=== PATIENT | female | born 1990 | race Caucasian/White ===

== ENCOUNTER 2017-06-16 10:09 | Day surgery (SDC) | payer BC ==
[~2017-06-16 10:09] MED LIST: Lactated Ringers 1,000 ML IV SCH; Lidocaine 1%/Sod Bicarbonate in NS 8.4% 1 ML Syringe PRN; Sodium Chloride 0.9% 10 ML Syringe FLUSH PRN
--- NOTE | 2017-06-16 10:56 | PCM.PREANE ---
Preanesthetic Assessment - Anesthesia/Transfusion/Family Hx Anesthesia History: Prior Anesthesia Without Reaction Family History of Anesthesia Reaction: No Transfusion History: No Prior Transfusion(s) Intubation History: Unknown - Review of Systems General: No Symptoms Pulmonary: No Symptoms Cardiovascular: No Symptoms Gastrointestinal: No Symptoms Neurological: No Symptoms Other: Reports: None - Physical Assessment NPO Status Date: 06/15/17 NPO Status Time: 18:00 Pulse: 79 O2 Sat by Pulse Oximetry: 96 Respiratory Rate: 16 Blood Pressure: 124/63 Temperature: 37.7 C Height: 1.73 m Weight: 80.739 kg ASA Class: 1 Mental Status: Alert & Oriented x3 Airway Class: Mallampati = 2 Dentition: Reports: Normal Dentition, Caries Thyro-Mental Finger Breadths: 3 Mouth Opening Finger Breadths: 3 ROM/Head Extension: Full Lungs: Clear to Auscultation, Normal Respiratory Effort Cardiovascular: Regular Rate, Regular Rhythm, No Murmurs - Lab Values: Laboratory Last Values WBC 10.45 K/mm3 (3.98-10.04) H 05/18/17 16:01 RBC 4.71 M/mm3 (3.98-5.22) 05/18/17 16:01 Hgb 13.0 gm/L (11.2-15.7) 05/18/17 16:01 Hct 40.4 % (34.1-44.9) 05/18/17 16:01 MCV 85.8 fl (79.4-94.8) 05/18/17 16:01 MCH 27.6 pg (25.6-32.2) 05/18/17 16:01 MCHC 32.2 g/dl (32.2-35.5) 05/18/17 16:01 RDW Std Deviation 41.7 fL (36.4-46.3) 05/18/17 16:01 Plt Count 293 K/mm3 (182-369) 05/18/17 16:01 MPV 10.9 fl (9.4-12.3) 05/18/17 16:01 Neut % (Auto) 66.4 % (34.0-71.1) 05/18/17 16:01 Lymph % (Auto) 24.0 % (19.3-51.7) 05/18/17 16:01 [place] % (Auto) 6.8 % (4.7-12.5) 05/18/17 16:01 Eos % (Auto) 2.2 (0.7-5.8) 05/18/17 16:01 Baso % (Auto) 0.4 % (0.1-1.2) 05/18/17 16:01 Neut # (Auto) 6.94 K/mm3 (1.56-6.13) H 05/18/17 16:01 Lymph # (Auto) 2.51 K/mm3 (1.18-3.74) 05/18/17 16:01 [place] # (Auto) 0.71 K/mm3 (0.24-0.36) H 05/18/17 16:01 Eos # (Auto) 0.23 K/mm3 (0.04-0.36) 05/18/17 16:01 Baso # (Auto) 0.04 K/mm3 (0.01-0.08) 05/18/17 16:01 Sodium 141 mEq/L (136-145) 05/18/17 16:01 Potassium 4.0 mEq/L (3.5-5.1) 05/18/17 16:01 Chloride 105 mEq/L (98-107) 05/18/17 16:01 Carbon Dioxide 28 mEq/L (21-32) 05/18/17 16:01 Anion Gap 12.0 (5-15) 05/18/17 16:01 BUN 12 mg/dL (7-18) 05/18/17 16:01 Creatinine 1.0 mg/dL (0.55-1.02) 05/18/17 16:01 Est Cr Clr Drug Dosing 86.75 mL/min 05/18/17 16:01 Estimated GFR (MDRD) > 60 mL/min (>60) 05/18/17 16:01 BUN/Creatinine Ratio 12.0 (14-18) L 05/18/17 16:01 Glucose 85 mg/dL (74-106) 05/18/17 16:01 Calcium 9.3 mg/dL (8.5-10.1) 05/18/17 16:01 Urine HCG, Qual Negative (NEGATIVE) 06/16/17 10:27 MRSA (PCR) Negative 05/18/17 16:01 HCG negative Above labs reviewed and noted and acceptable to proceed with scheduled procedure. - Allergies Allergies/Adverse Reactions: Allergies Allergy/AdvReac Type Severity Reaction Status Date / Time No Known Allergies Allergy Verified 06/15/17 13:37 - Anesthesia Plan Pre-Op Medication Ordered: None - Acknowledgements Anesthesia Type Planned: General Anesthesia Pt an Appropriate Candidate for the Planned Anesthesia: Yes Alternatives and Risks of Anesthesia Discussed w Pt/Guardian: Yes Pt/Guardian Understands and Agrees with Anesthesia Plan: Yes PreAnesthesia Questionnaire - Past Health History Medical/Surgical History: Denies Medical/Surgical History - Past Surgical History HEENT Surgical History: Reports: Other (See Below) Other HEENT Surgeries/Procedures: wisdom teeth Female Surgical History: Reports: Dilitation & Evacuation Other Musculoskeletal Surgeries/Procedures:: left tibia medullary adeel surgery - SUBSTANCE USE Smoking Status *Q: Never Smoker Recreational Drug Use History: No - HOME MEDS Home Medications: Home Meds Hydrocodone/Acetaminophen [Hydrocodon-Acetaminophen 5-325] 1 - 2 each PO Q6HR PRN #20 tablet 11/19/15 [Rx] - CURRENT (IN HOUSE) MEDS Current Meds: Current Medications Lactated Ringer's (Ringers, Lactated) 1,000 mls @ 125 mls/hr IV ASDIRECTED OSVALDO Stop: 06/16/17 23:00 Lidocaine/Sodium Bicarbonate (Buffered Lidocaine 1% In Ns 8.4%) 0.25 ml .XX ONETIME PRN PRN Reason: Prior to IV Start Stop: 06/16/17 18:00 Sodium Chloride (Saline Flush) 10 ml FLUSH ASDIRECTED PRN PRN Reason: Keep Vein Open Stop: 06/16/17 18:00
[2017-06-16] MEDS ORDERED: Bupivacaine 0.25% 30 ML SDV ONE (11:02)
[2017-06-16] MEDS ORDERED: EPINEPHrine 1 MG/ML 30 ML MDV ONE (11:04)
[2017-06-16] MEDS ORDERED: Ondansetron 4 MG/2 ML SDV ONE ×2 (11:18→15:02)
[2017-06-16] MEDS ORDERED: Rocuronium 50 MG/5 ML Vial ONE (11:18)
[2017-06-16] MEDS ORDERED: Propofol 200 MG/20 ML SDV ONE (11:18)
[2017-06-16] MEDS ORDERED: Lidocaine 1% 4 ML ONE (11:19)
[2017-06-16] MEDS ORDERED: fentaNYL 250 MCG/5 ML SDV ONE ×2 (11:19→13:07)
[2017-06-16] MEDS ORDERED: Midazolam 1 MG/ML 2 ML SDV ONE (11:19)
[2017-06-16] MEDS ORDERED: ceFAZolin 1 GM Vial ONE (11:19)
[2017-06-16] MEDS ORDERED: HYDROmorphone 1 MG/ML Syringe ONE (12:35)
[2017-06-16] MEDS ORDERED: Lactated Ringers 1,000 ML ONE (12:48)
[2017-06-16] MEDS ORDERED: fentaNYL 100 MCG/2 ML SDV IVPUSH PRN (13:40)
[2017-06-16] MEDS ORDERED: HYDROmorphone 0.5 MG/0.5 ML Syringe IVPUSH PRN (13:40)
--- NOTE | 2017-06-16 13:40 | PCM.POSTAN ---
POST ANESTHESIA ASSESSMENT - MENTAL STATUS Mental Status: Alert, Oriented - VITAL SIGNS Pulse Rate: 83 SaO2: 97 Resp Rate: 11 Blood Pressure: 104/55 Temperature: 36.6 C - RESPIRATORY Respiratory Status: Respiratory Rate WNL, Airway Patent, O2 Saturation Stable, Supplemental Oxygen - CARDIOVASCULAR CV Status: Pulse Rate WNL, Blood Pressure Stable - GASTROINTESTINAL GI Status: No Symptoms - PAIN Pain Score: 0 - POST OP HYDRATION Hydration Status: Adequate & Stable - OBSERVATIONS Free Text/Narrative:: no anesthesia complications noted
--- NOTE | 2017-06-16 13:43 | CR ---
Right knee: Multiple fluoroscopic spot views were obtained of the right knee. Study shows patellar surgery. Fluoroscopy time given as 72.0 seconds. Impression: 1. Findings as noted above. Diagnostic code #2
[2017-06-16] MEDS ORDERED: Ketorolac 30 MG/ML SDV IVPUSH PRN (15:00)
[2017-06-16] MEDS ORDERED: Ondansetron 4 MG/2 ML SDV IVPUSH PRN (15:07)
[2017-06-16] MEDS ORDERED: Metoclopramide 10 MG/2 ML SDV IVPUSH PRN (15:07)
[2017-06-16] MEDS ORDERED: Acetaminophen/HYDROcodone 325-5 MG Tab PO PRN (15:15)
[2017-06-16 17:37] VITALS: BP 119/74
--- NOTE | 2017-06-22 13:31 | PCM.OPNOTE ---
- General Post-Op/Procedure Note Date of Surgery/Procedure: 06/16/17 Operative Procedure(s): right knee video arthroscopy with medial patellofemoral ligament reconstruction with hamstring allograft Pre Op Diagnosis: Patellofemoral malalignment with patellar chondromalacia Post-Op Diagnosis: Same Anesthesia Technique: General LMA, Local Primary Surgeon: Isaac Merrill Anesthesia Provider: Brandy Lorenzo Clinical Faculty: Paris Muniz in mLs: 5 Complications: None Condition: Good
--- NOTE | 2017-06-22 15:59 | OR ---
DATE OF OPERATION: 06/16/2017 SURGEON: Isaac Merrill MD OPERATION PERFORMED: Operative Procedure: Right knee video arthroscopy with medial patellofemoral ligament reconstruction with hamstring allograft. PREOPERATIVE DIAGNOSIS: Patellofemoral malalignment with patellar chondromalacia. POSTOPERATIVE DIAGNOSIS: Patellofemoral malalignment with patellar chondromalacia. ANESTHESIA: Technique: General LMA with local. ANESTHESIA PROVIDER: Brandy Lorenzo CRNA NEWS ASSISTANT: Paris Muniz PA-C ESTIMATED BLOOD LOSS: 5 mL. COMPLICATIONS: None. CONDITION: Stable. DESCRIPTION OF PROCEDURE: The patient was identified in the preoperative holding area. Proper site was marked and identified by the surgeon. The patient was taken back to the operating theater where after adequate anesthesia, the patient had a nonsterile tourniquet applied. The right lower extremity was then sterilely prepped and draped in the usual sterile fashion. OR time-out was performed. The patient received 2 g of IV Ancef. The patient was on a radiolucent table supine. At this time, right lower extremity was exsanguinated. Tourniquet was insufflated to 250 mmHg. At this time, standard anterior lower lateral portal incision was made with the patient's knee in flexion. Scope trocar was introduced. On examination of the patellofemoral joint, patient showed to have grade 2 chondromalacia of both the patella and grade 1 of the trochlea. The patient was noted to have significant lateral subluxation of the patellofemoral joint and the trochlea. Attention was turned to the medial lateral compartments. There were no loose foreign bodies. Attention was turned to the medial compartment. There was no medial meniscus tear or no chondromalacia of the medial compartment. ACL was found to be intact in the notch. Lateral compartment showed no signs of chondromalacia or meniscal tear. At this time, a posterolateral portal was created and the scope trocar was introduced. At this time, the patient's knee was brought through range of motion. It was found to show significant compression of the lateral patellar facet on the lateral femoral condyle with maltracking of the patella laterally. At this time, the scope was removed. Excess saline was drained. The remnants were turned on and incision was made over the medial 2/3 of the patella. This was brought down just short of the capsule, and the edge of the patella was identified. While this was happening, the allograft tendon had both ends whip stitched on the back table with Paris Muniz PA-C and prepared for the medial patellofemoral ligament reconstruction. At this time, guide pins were then placed 3 mm roughly from the superior medial edge of the patella and another one roughly 15 mm distally from this. Drill holes were then drilled for the 3.5 mm SwiveLock anchors. The plane between the 2nd and 3rd medial layers and the knee was then identified and was dissected. Guide pin was then placed at the proper positioning of the drill hole on the femur for the medial patellofemoral ligament reconstruction near the posterior edge of the posterior cortex and along just anterior to Blumensaat's line posteriorly. At this time, the guide pin was then placed all the way across through the lateral skin. Drill hole was then drilled through the medial side of the femur all the way through the canal. Stopping short making sure not to perforate the lateral cortex. Once the graft was prepared the 2 limbs of the graft were brought in and placed using SwiveLock anchors into the patella and then the graft was shuttled between the 2nd and 3rd layers of the medial layers of the knee. This was then brought through to the lateral side after the guide pin was placed for the 7 mm interference screw on the medial side of the femur. Tension was held on the patella and the suture once it was brought through the lateral skin in the proper positioning the scope was introduced and it was found to be tracking centrally. At this time, the 8 mm interference screw was placed in the femoral drill hole with the graft inside of it. At this time, the graft was brought through the lateral side, the interference screw was found to be in place. It was found to be in proper tracking, excess saline was drained. Adequate saline was irrigated through all wounds. 0 Vicryl was used for deep closure, 2-0 Vicryl was used subcutaneously, and lucian were used for the skin. The patient was placed in a sterile soft dressing and a hinged knee brace and was sent to the PACU in stable condition. MMODAL /[id number] JABIER
== END 2017-06-16 17:08 | disposition home or self-care (01) ==
LOC: JD.SDS 10:09
PROVIDERS: ATTEND Orthopaedic Surgery
DX: M22.2X1 Patellofemoral disorders, right knee (principal); M22.41 Chondromalacia patellae, right knee; Z98.890 Other specified postprocedural states
CPT/HCPCS: 27428; 36415; 76000; 80048; 81025; 85025; 87641; A9270; C1713; C1762; J0171; J0690; J1170; J2250; J2405; J3010; J3490; J7120; 01400; J2704

== ENCOUNTER 2020-05-05 05:52 | Inpatient (IN) | payer BC ==
[~2020-05-05 05:52] MED LIST changes: +Bupivacaine 0.25% 10 ML SDV ONE; -Lactated Ringers 1,000 ML IV SCH; -Lidocaine 1%/Sod Bicarbonate in NS 8.4% 1 ML Syringe PRN; -Sodium Chloride 0.9% 10 ML Syringe FLUSH PRN
[2020-05-05] MEDS ORDERED: Nalbuphine 10 MG/ML Syringe IVPUSH PRN (07:04)
[2020-05-05] MEDS ORDERED: Sodium Chloride 0.9% 10 ML Syringe FLUSH PRN (07:04)
[2020-05-05] MEDS ORDERED: Oxytocin/Lactated Ringers 10 UNIT/1,000 ML BAG IV SCH (07:15)
[2020-05-05] MEDS: Lactated Ringers 1,000 ML IV SCH ×3 (07:35→11:25)
[2020-05-05] MEDS ORDERED: fentaNYL 100 MCG/2 ML SDV EPIDUR PRN (08:03)
[2020-05-05] MEDS ORDERED: Bupivacaine/fentaNYL/NS 100 ML Bag EPIDUR PRN (08:03)
[2020-05-05] MEDS ORDERED: diphenhydrAMINE 50 MG/ML SDV IVPUSH PRN (08:03)
[2020-05-05] MEDS ORDERED: ePHEDrine 50 MG/ML SDV IVPUSH PRN (08:03)
--- NOTE | 2020-05-05 08:35 | PCM.PREANE ---
Preanesthetic Assessment - Procedure Proposed Procedure: catracho - Anesthesia/Transfusion/Family Hx Anesthesia History: Prior Anesthesia Without Reaction Family History of Anesthesia Reaction: No Transfusion History: No Prior Transfusion(s) Intubation History: Unknown - Review of Systems General: No Symptoms Pulmonary: No Symptoms Cardiovascular: No Symptoms Gastrointestinal: No Symptoms Neurological: No Symptoms Other: Reports: None - Physical Assessment Vital Signs: Last Vital Signs Temp 97.5 F 05/05/20 06:00 Pulse 92 05/05/20 06:00 Resp 15 05/05/20 06:00 BP 125/83 05/05/20 06:00 Pulse Ox 99 05/05/20 06:00 Height: 5 ft 8 in Weight: 105.687 kg ASA Class: 2 Mental Status: Alert & Oriented x3 Airway Class: Mallampati = 1 Dentition: Reports: Normal Dentition Thyro-Mental Finger Breadths: 3 Mouth Opening Finger Breadths: 3 ROM/Head Extension: Full Lungs: Clear to Auscultation, Normal Respiratory Effort Cardiovascular: Regular Rate, Regular Rhythm - Lab Values: Laboratory Last Values WBC 12.70 K/mm3 (3.98-10.04) H 05/05/20 07:20 RBC 4.64 M/mm3 (3.98-5.22) 05/05/20 07:20 Hgb 12.7 gm/dl (11.2-15.7) 05/05/20 07:20 Hct 38.4 % (34.1-44.9) 05/05/20 07:20 MCV 82.8 fl (79.4-94.8) 05/05/20 07:20 MCH 27.4 pg (25.6-32.2) 05/05/20 07:20 MCHC 33.1 g/dl (32.2-35.5) 05/05/20 07:20 RDW Std Deviation 48.0 fL (36.4-46.3) H 05/05/20 07:20 Plt Count 231 K/mm3 (182-369) 05/05/20 07:20 MPV 10.8 fl (9.4-12.3) 05/05/20 07:20 Neut % (Auto) 75.0 % (34.0-71.1) H 05/05/20 07:20 Lymph % (Auto) 17.2 % (19.3-51.7) L 05/05/20 07:20 [place] % (Auto) 6.4 % (4.7-12.5) 05/05/20 07:20 Eos % (Auto) 1.2 (0.7-5.8) 05/05/20 07:20 Baso % (Auto) 0.2 % (0.1-1.2) 05/05/20 07:20 Neut # (Auto) 9.53 K/mm3 (1.56-6.13) H 05/05/20 07:20 Lymph # (Auto) 2.19 K/mm3 (1.18-3.74) 05/05/20 07:20 [place] # (Auto) 0.81 K/mm3 (0.24-0.36) H 05/05/20 07:20 Eos # (Auto) 0.15 K/mm3 (0.04-0.36) 05/05/20 07:20 Baso # (Auto) 0.02 K/mm3 (0.01-0.08) 05/05/20 07:20 Membrane Rupture Positive H 05/05/20 06:27 - Allergies Allergies/Adverse Reactions: Allergies Allergy/AdvReac Type Severity Reaction Status Date / Time No Known Allergies Allergy Verified 05/05/20 07:42 - Blood Blood Available: No - Acknowledgements Anesthesia Type Planned: Epidural Pt an Appropriate Candidate for the Planned Anesthesia: Yes Alternatives and Risks of Anesthesia Discussed w Pt/Guardian: Yes Pt/Guardian Understands and Agrees with Anesthesia Plan: Yes PreAnesthesia Questionnaire - Past Health History Medical/Surgical History: Denies Medical/Surgical History Cardiovascular History: Reports: None Respiratory History: Reports: None Gastrointestinal History: Reports: None : 3 (38 5) Para: 0 Musculoskeletal History: Reports: None Psychiatric History: Reports: None Oncologic (Cancer) History: Reports: None - Past Surgical History HEENT Surgical History: Reports: Other (See Below) Other HEENT Surgeries/Procedures: wisdom teeth Female Surgical History: Reports: Dilitation & Evacuation Other Musculoskeletal Surgeries/Procedures:: left tibia medullary adeel surgery - SUBSTANCE USE Smoking Status *Q: Never Smoker Tobacco Use Within Last Twelve Months: No Second Hand Smoke Exposure: No Days Per Week of Alcohol Use: 0 Recreational Drug Use History: No - HOME MEDS Home Medications: Home Meds . [No Known Home Meds] 05/05/20 [History] - CURRENT (IN HOUSE) MEDS Current Meds: Current Medications Diphenhydramine HCl (Benadryl) 25 mg IVPUSH Q6H PRN PRN Reason: pruritis Ephedrine Sulfate (Ephedrine Sulfate) 5 mg IVPUSH ASDIRECTED PRN PRN Reason: Hypotension Fentanyl (Sublimaze) 100 mcg EPIDUR Q3H PRN PRN Reason: Pain Last Admin: 05/05/20 08:20 Dose: 100 mcg Documented by: Fentanyl/Bupivacaine HCl (Fentanyl/Bupivacaine/Ns 2 Mcg-0.125% 100 Ml) 100 ml EPIDUR ASDIRECTED PRN PRN Reason: Pain Last Admin: 05/05/20 08:20 Dose: 100 ml Documented by: Lactated Ringer's (Ringers, Lactated) 1,000 mls @ 100 mls/hr IV ASDIRECTED OSVALDO Last Admin: 05/05/20 08:21 Dose: 999 mls/hr Documented by: Oxytocin/Lactated Ringer's (Pitocin In Lr 10 Units/1,000 Ml) 10 unit in 1,000 mls @ 500 mls/hr IV .CONTINUOUS OSVALDO Nalbuphine HCl (Nubain) 10 mg IVPUSH Q2H PRN PRN Reason: Pain Sodium Chloride (Saline Flush) 10 ml FLUSH ASDIRECTED PRN PRN Reason: Keep Vein Open
--- NOTE | 2020-05-05 09:35 | PCM.LDHP ---
<Anna Butterfield - Last Filed: 05/05/20 09:49> L&D History of Present Illness - General Date of Service: 05/05/20 Admit Problem/Dx: Patient Status Order with Admit Dx/Problem 05/05/20 06:00 Patient Status [ADT] Routine 05/05/20 07:04 Patient Status [ADT] Routine Admission Diagnosis/Problem Admission Diagnosis/Problem Source of Information: Patient History Limitations: Reports: No Limitations - History of Present Illness Introduction:: Lulu Valdez is a 29-year-old white female at 38 weeks and 5 days gestational age, with an VASILE of 05/14/2020, who presents to labor and delivery with spontaneous rupture of membranes and meconium staining. Pain Score: 10 Present Illness Comments:: Lulu Valdez is a 29-year-old white female at 38 weeks and 5 days gestational age, with an VASILE of 05/14/2020, who presents to labor and delivery with spontaneous rupture of membranes and meconium staining. She tells me she woke up around 4:00 am this morning and noticed a "trickle" of clear liquid coming from her vagina, as well as moderate contractions. She presented to labor and delivery around 6:00 am this morning. When getting into bed on the unit, she had a "gush" of fluid consistent with meconium staining. OBGYN History: 29-year-old . VASILE 05/14/2020, LMP 08/08/2019 which was supported by ultrasound performed on 09/26/2019. Normal menarche at age 13, normal and regular cycles every 28 days. She was not on control at the time of conception. She has a history of HPV and colposcopy in June 2019. Past OBGYN History: 1. Induced in April 2015 at 8 weeks gestational age. 2. Induced in April 2016 at 6 weeks gestational age. Course: First visit on 10/29/2019 at 11 weeks 5 days gestational age. She was seen on a regular basis throughout . She weighed 163 lbs at the beginning of and 232 lbs on 04/29/2020, for a total weight gain during of 69 pounds. Vital signs remained stable throughout course and fundal height growths were appropriate. Second dose of HPV vaccine was given on 08/21/2019. Ultrasounds on 01/16/2020 and 02/27/2020 demonstrated normal anatomical growth. She plans to have an epidural. Group B strep negative. She is rubella immune. RPR nonreactive. Hepatitis B surface antigen and HIV were negative. Gonorrhea and chlamydia negative. Prequel results were negative in November 2019. Initial Labs on 10/29/2019: Blood Type: O positive Antibody Screen: Negative Hemoglobin: 12.8 g/dl Hematocrit:38.0% Platelets: 301 10*3/uL Second Trimester Labs on 02/19/2020: Hemoglobin: 11.7 g/dl Hematocrit: 36.7% Platelets: 258 10*3/uL - Related Data Allergies/Adverse Reactions: Allergies Allergy/AdvReac Type Severity Reaction Status Date / Time No Known Allergies Allergy Verified 05/05/20 07:42 Home Medications: Home Meds . [No Known Home Meds] 05/05/20 [History] Past Medical History - Past Health History Medical/Surgical History: Denies Medical/Surgical History Cardiovascular History: Reports: None Respiratory History: Reports: None Gastrointestinal History: Reports: None Musculoskeletal History: Reports: None Psychiatric History: Reports: None Oncologic (Cancer) History: Reports: None - Past Surgical History HEENT Surgical History: Reports: Other (See Below) Other HEENT Surgeries/Procedures: wisdom teeth Female Surgical History: Reports: Dilitation & Evacuation Other Musculoskeletal Surgeries/Procedures:: left tibia medullary adeel surgery Social & Family History - Family History Family Medical History: Noncontributory - Tobacco Use Smoking Status *Q: Never Smoker Second Hand Smoke Exposure: No - Alcohol Use Days Per Week of Alcohol Use: 0 - Recreational Drug Use Recreational Drug Use: No H&P Review of Systems - Review of Systems: Review Of Systems: See Below General: Reports: No Symptoms HEENT: Reports: No Symptoms Pulmonary: Reports: No Symptoms Cardiovascular: Reports: No Symptoms Gastrointestinal: Reports: No Symptoms Genitourinary: Reports: No Symptoms Musculoskeletal: Reports: No Symptoms Skin: Reports: No Symptoms Psychiatric: Reports: No Symptoms Neurological: Reports: No Symptoms Hematologic/Lymphatic: Reports: No Symptoms Immunologic: Reports: No Symptoms L&D Exam - Exam Exam: See Below - Vital Signs Vital Signs: Last Vital Signs Temp 97.5 F 05/05/20 06:00 Pulse 92 05/05/20 06:00 Resp 15 05/05/20 06:00 BP 125/83 05/05/20 06:00 Pulse Ox 99 05/05/20 06:00 Weight: 233 lb - OB Specific Movement: Active Heart Tones: Present - Pacheco Score Pacheco Score Cervix Position: Midposition Pacheco Score Consistency: Soft Pacheco Score Effacement: >80% Pacheco Score Dilation: 3-4 cm Pacheco Score Infant's Station: -2 Pacheco Score Total: 9 - Exam General: Alert, Oriented, Cooperative HEENT: Conjunctiva Clear, EOMI, Hearing Intact, Mucosa Moist & [place], Normal Nasal Septum, Posterior Pharynx Clear, Pupils Equal, Pupils Reactive Neck: Supple, Trachea Midline, Full Range of Motion Lungs: Clear to Auscultation, Normal Respiratory Effort Cardiovascular: Regular Rate, Regular Rhythm, Normal S1, Normal S2 GI/Abdominal Exam: Normal Bowel Sounds Rectal Exam: Deferred Genitourinary: Normal external exam Back Exam: Normal Inspection, Full Range of Motion, Other (No CVA tenderness) Extremities: Normal Inspection, Normal Range of Motion, Non-Tender, No Pedal Edema, Normal Capillary Refill Skin: Warm, Dry, Intact Neurological: Cranial Nerves Intact, Reflexes Equal Bilateral DTR: 2+: Bicep (L), Bicep (R), Patella (L), Patella (R), Achilles (L), Achilles (R) Psychiatric: Alert, Normal Affect, Normal Mood - Patient Data Lab Results Last 24 hrs: Laboratory Results - last 24 hr 05/05/20 05/05/20 Range/Units 06:27 07:20 WBC 12.70 H (3.98-10.04) K/mm3 RBC 4.64 (3.98-5.22) M/mm3 Hgb 12.7 (11.2-15.7) gm/dl Hct 38.4 (34.1-44.9) % MCV 82.8 (79.4-94.8) fl MCH 27.4 (25.6-32.2) pg MCHC 33.1 (32.2-35.5) g/dl RDW Std Deviation 48.0 H (36.4-46.3) fL Plt Count 231 (182-369) K/mm3 MPV 10.8 (9.4-12.3) fl Neut % (Auto) 75.0 H (34.0-71.1) % Lymph % (Auto) 17.2 L (19.3-51.7) % [place] % (Auto) 6.4 (4.7-12.5) % Eos % (Auto) 1.2 (0.7-5.8) Baso % (Auto) 0.2 (0.1-1.2) % Neut # (Auto) 9.53 H (1.56-6.13) K/mm3 Lymph # (Auto) 2.19 (1.18-3.74) K/mm3 [place] # (Auto) 0.81 H (0.24-0.36) K/mm3 Eos # (Auto) 0.15 (0.04-0.36) K/mm3 Baso # (Auto) 0.02 (0.01-0.08) K/mm3 Membrane Rupture Positive H Result Diagrams: 05/05/20 07:20 Problem List Initiated/Reviewed/Updated: Yes Orders Last 24hrs: Active Orders 24 hr Category Date Time Status Patient Status [ADT] Routine ADT 05/05/20 07:04 Active Activity as Tolerated [RC] PFP Care 05/05/20 07:04 Active Communication Order [RC] ASDIRECTED Care 05/05/20 07:04 Active Heart Tones [RC] ASDIRECTED Care 05/05/20 07:04 Active Non Stress Test [RC] PER UNIT ROUTINE Care 05/05/20 06:00 Active Notify Provider [RC] ASDIRECTED Care 05/05/20 08:03 Active Notify Provider [RC] PFP Care 05/05/20 07:04 Active Notify Provider [RC] PRN Care 05/05/20 07:04 Active Peripheral IV Care [RC] . DIRECTED Care 05/05/20 07:04 Active Vital Signs [RC] PER UNIT ROUTINE Care 05/05/20 06:00 Active Vital Signs [RC] PER UNIT ROUTINE Care 05/05/20 07:04 Active Regular Diet [DIET] Diet 05/05/20 Breakfast Active CORONAVIRUS COVID-19 ANGELO [MOLEC] Routine Lab 05/05/20 07:34 Ordered RAPID PLASMA REAGIN,RPR [CHEM] Routine Lab 05/05/20 07:20 Received TYPE AND SCREEN [BBK] Stat Lab 05/05/20 07:20 Received Bupivacaine/fentaNYL/NS [fentaNYL/Bupivacaine/NS 2 MCG- Med 05/05/20 08:03 Active 0.125% 100 ML] 100 ml EPIDUR ASDIRECTED PRN Lactated Ringers [Ringers, Lactated] 1,000 ml Med 05/05/20 07:15 Active IV ASDIRECTED Nalbuphine [Nubain] Med 05/05/20 07:04 Active 10 mg IVPUSH Q2H PRN Oxytocin/Lactated Ringers [Pitocin in LR 10 Units/1,000 Med 05/05/20 07:15 Active ML] 10 unit in 1,000 ml IV .CONTINUOUS Sodium Chloride 0.9% [Saline Flush] Med 05/05/20 07:04 Active 10 ml FLUSH ASDIRECTED PRN diphenhydrAMINE [Benadryl] Med 05/05/20 08:03 Active 25 mg IVPUSH Q6H PRN ePHEDrine [ePHEDrine sulfate] Med 05/05/20 08:03 Active 5 mg IVPUSH ASDIRECTED PRN fentaNYL [Sublimaze] Med 05/05/20 08:03 Active 100 mcg EPIDUR Q3H PRN Electronic Heart Tones Ext w TOCO [WOMSER] Oth 05/05/20 07:04 Ordered Routine Electronic Heart Tones Internal [WOMSER] Per Unit Oth 05/05/20 07:04 Ordered Routine Peripheral IV Insertion Adult [OM.PC] Routine Oth 05/05/20 07:04 Ordered Resuscitation Status Routine Resus Stat 05/05/20 06:00 Ordered Medication Orders Diphenhydramine HCl (Benadryl) 25 mg IVPUSH Q6H PRN PRN Reason: pruritis Ephedrine Sulfate (Ephedrine Sulfate) 5 mg IVPUSH ASDIRECTED PRN PRN Reason: Hypotension Fentanyl (Sublimaze) 100 mcg EPIDUR Q3H PRN PRN Reason: Pain Last Admin: 05/05/20 08:20 Dose: 100 mcg Documented by: DECKAMB Fentanyl/Bupivacaine HCl (Fentanyl/Bupivacaine/Ns 2 Mcg-0.125% 100 Ml) 100 ml EPIDUR ASDIRECTED PRN PRN Reason: Pain Last Admin: 05/05/20 08:20 Dose: 100 ml Documented by: DECKAMB Lactated Ringer's (Ringers, Lactated) 1,000 mls @ 100 mls/hr IV ASDIRECTED OSVALDO Last Admin: 05/05/20 08:21 Dose: 999 mls/hr Documented by: Infusion: 05/05/20 08:21 Dose: 999 mls/hr Documented by: Admin: 05/05/20 07:35 Dose: 999 mls/hr Documented by: ROXIE Oxytocin/Lactated Ringer's (Pitocin In Lr 10 Units/1,000 Ml) 10 unit in 1,000 mls @ 500 mls/hr IV .CONTINUOUS OSVALDO Nalbuphine HCl (Nubain) 10 mg IVPUSH Q2H PRN PRN Reason: Pain Sodium Chloride (Saline Flush) 10 ml FLUSH ASDIRECTED PRN PRN Reason: Keep Vein Open Assessment/Plan Comment:: Lulu Valdez is a 29-year-old white female at 38 weeks and 5 days gestational age, with an VASILE of 05/14/2020, who presents to labor and delivery with spontaneous rupture of membranes and meconium staining. At this time, she is 4-5 cm dilated and we will see how her labor progresses before discussing Pitocin. She plans to have an epidural. Routine labor care - IV Lactated Ringers Routine vital signs Activity as tolerated. <Miles Gamez - Last Filed: 05/05/20 09:59> L&D History of Present Illness - General Admit Problem/Dx: Patient Status Order with Admit Dx/Problem 05/05/20 06:00 Patient Status [ADT] Routine 05/05/20 07:04 Patient Status [ADT] Routine Admission Diagnosis/Problem Admission Diagnosis/Problem L&D Exam - Vital Signs Vital Signs: Last Vital Signs Temp 97.5 F 05/05/20 06:00 Pulse 92 05/05/20 06:00 Resp 15 05/05/20 06:00 BP 125/83 05/05/20 06:00 Pulse Ox 99 05/05/20 06:00 - Patient Data Lab Results Last 24 hrs: Laboratory Results - last 24 hr 05/05/20 05/05/20 Range/Units 06:27 07:20 WBC 12.70 H (3.98-10.04) K/mm3 RBC 4.64 (3.98-5.22) M/mm3 Hgb 12.7 (11.2-15.7) gm/dl Hct 38.4 (34.1-44.9) % MCV 82.8 (79.4-94.8) fl MCH 27.4 (25.6-32.2) pg MCHC 33.1 (32.2-35.5) g/dl RDW Std Deviation 48.0 H (36.4-46.3) fL Plt Count 231 (182-369) K/mm3 MPV 10.8 (9.4-12.3) fl Neut % (Auto) 75.0 H (34.0-71.1) % Lymph % (Auto) 17.2 L (19.3-51.7) % [place] % (Auto) 6.4 (4.7-12.5) % Eos % (Auto) 1.2 (0.7-5.8) Baso % (Auto) 0.2 (0.1-1.2) % Neut # (Auto) 9.53 H (1.56-6.13) K/mm3 Lymph # (Auto) 2.19 (1.18-3.74) K/mm3 [place] # (Auto) 0.81 H (0.24-0.36) K/mm3 Eos # (Auto) 0.15 (0.04-0.36) K/mm3 Baso # (Auto) 0.02 (0.01-0.08) K/mm3 Membrane Rupture Positive H Result Diagrams: 05/05/20 07:20 - Problem List (1) 38 weeks gestation of SNOMED Code(s): 17267139 ICD Code: Z3A.38 - 38 WEEKS GESTATION OF Status: Acute Current Visit: Yes (2) Spontaneous rupture of amniotic membranes SNOMED Code(s): 947025716 ICD Code: [id number] - Status: Acute Current Visit: Yes (3) Meconium in amniotic fluid affecting management of mother in third trimester SNOMED Code(s): 17831245, 76673782 ICD Code: O36.8930 - MATERNAL CARE FOR OTH PROBLEMS, THIRD TRIMESTER, UNSP Status: Acute Current Visit: Yes Problem List Initiated/Reviewed/Updated: No Orders Last 24hrs: Active Orders 24 hr Category Date Time Status Patient Status [ADT] Routine ADT 05/05/20 07:04 Active Activity as Tolerated [RC] PFP Care 05/05/20 07:04 Active Communication Order [RC] ASDIRECTED Care 05/05/20 07:04 Active Heart Tones [RC] ASDIRECTED Care 05/05/20 07:04 Active Non Stress Test [RC] PER UNIT ROUTINE Care 05/05/20 06:00 Active Notify Provider [RC] ASDIRECTED Care 05/05/20 08:03 Active Notify Provider [RC] PFP Care 05/05/20 07:04 Active Notify Provider [RC] PRN Care 05/05/20 07:04 Active Peripheral IV Care [RC] . DIRECTED Care 05/05/20 07:04 Active Vital Signs [RC] PER UNIT ROUTINE Care 05/05/20 06:00 Active Vital Signs [RC] PER UNIT ROUTINE Care 05/05/20 07:04 Active Regular Diet [DIET] Diet 05/05/20 Breakfast Active CORONAVIRUS COVID-19 ANGELO [MOLEC] Stat Lab 05/05/20 09:50 Ordered CORONAVIRUS COVID-19 RAPID [MOLEC] Routine Lab 05/05/20 09:35 Received RAPID PLASMA REAGIN,RPR [CHEM] Routine Lab 05/05/20 07:20 Received TYPE AND SCREEN [BBK] Stat Lab 05/05/20 07:20 Received Bupivacaine/fentaNYL/NS [fentaNYL/Bupivacaine/NS 2 MCG- Med 05/05/20 08:03 Active 0.125% 100 ML] 100 ml EPIDUR ASDIRECTED PRN Lactated Ringers [Ringers, Lactated] 1,000 ml Med 05/05/20 07:15 Active IV ASDIRECTED Nalbuphine [Nubain] Med 05/05/20 07:04 Active 10 mg IVPUSH Q2H PRN Oxytocin/Lactated Ringers [Pitocin in LR 10 Units/1,000 Med 05/05/20 07:15 Active ML] 10 unit in 1,000 ml IV .CONTINUOUS Sodium Chloride 0.9% [Saline Flush] Med 05/05/20 07:04 Active 10 ml FLUSH ASDIRECTED PRN diphenhydrAMINE [Benadryl] Med 05/05/20 08:03 Active 25 mg IVPUSH Q6H PRN ePHEDrine [ePHEDrine sulfate] Med 05/05/20 08:03 Active 5 mg IVPUSH ASDIRECTED PRN fentaNYL [Sublimaze] Med 05/05/20 08:03 Active 100 mcg EPIDUR Q3H PRN Electronic Heart Tones Ext w TOCO [WOMSER] Ot 05/05/20 07:04 Ordered Routine Electronic Heart Tones Internal [WOMSER] Per Unit Ot 05/05/20 07:04 Ordered Routine Peripheral IV Insertion Adult [OM.PC] Routine Ot 05/05/20 07:04 Ordered Resuscitation Status Routine Resus Stat 05/05/20 06:00 Ordered Medication Orders Diphenhydramine HCl (Benadryl) 25 mg IVPUSH Q6H PRN PRN Reason: pruritis Ephedrine Sulfate (Ephedrine Sulfate) 5 mg IVPUSH ASDIRECTED PRN PRN Reason: Hypotension Fentanyl (Sublimaze) 100 mcg EPIDUR Q3H PRN PRN Reason: Pain Last Admin: 05/05/20 08:20 Dose: 100 mcg Documented by: ROXIE Fentanyl/Bupivacaine HCl (Fentanyl/Bupivacaine/Ns 2 Mcg-0.125% 100 Ml) 100 ml EPIDUR ASDIRECTED PRN PRN Reason: Pain Last Admin: 05/05/20 08:20 Dose: 100 ml Documented by: ROXIE Lactated Ringer's (Ringers, Lactated) 1,000 mls @ 100 mls/hr IV ASDIRECTED OSVALDO Last Admin: 05/05/20 08:21 Dose: 999 mls/hr Documented by: Infusion: 05/05/20 08:21 Dose: 999 mls/hr Documented by: Admin: 05/05/20 07:35 Dose: 999 mls/hr Documented by: ROXIE Oxytocin/Lactated Ringer's (Pitocin In Lr 10 Units/1,000 Ml) 10 unit in 1,000 mls @ 500 mls/hr IV .CONTINUOUS OSVALDO Nalbuphine HCl (Nubain) 10 mg IVPUSH Q2H PRN PRN Reason: Pain Sodium Chloride (Saline Flush) 10 ml FLUSH ASDIRECTED PRN PRN Reason: Keep Vein Open Assessment/Plan Comment:: Patient seen by me and examined and patient discussed with student.
[2020-05-05] MEDS ORDERED: Metoclopramide 10 MG/2 ML SDV ONE (13:34)
[2020-05-05] MEDS ORDERED: Citric Acid/Sodium Citrate Solution 30 ML Cup ONE (13:34)
[2020-05-05] MEDS ORDERED: Metoclopramide 10 MG/2 ML SDV IVPUSH ONE (13:35)
[2020-05-05] MEDS ORDERED: Citric Acid/Sodium Citrate Solution 30 ML Cup PO ONE (13:35)
[2020-05-05] MEDS ORDERED: Bupivacaine 0.5% 30 ML SDV ONE (13:41)
[2020-05-05] MEDS ORDERED: Oxytocin 10 Units/1 ML SDV ONE (13:43)
[2020-05-05] MEDS ORDERED: Ketorolac 30 MG/ML SDV ONE (13:43)
[2020-05-05] MEDS ORDERED: Ondansetron 4 MG/2 ML SDV ONE (13:43)
[2020-05-05] MEDS ORDERED: ceFAZolin 1 GM Vial ONE (13:43)
[2020-05-05] MEDS ORDERED: Morphine PF 1 MG/ML Amp ONE (13:43)
[2020-05-05] MEDS ORDERED: Lactated Ringers 0 ML ONE (13:43)
[2020-05-05] MEDS ORDERED: Lidocaine 2% with EPINEPHrine 1:200,000 20 ML SDV ONE (13:45)
[2020-05-05] MEDS ORDERED: Sodium Bicarbonate 8.4% 50 MEQ/50 ML SDV ONE (13:45)
--- NOTE | 2020-05-05 14:07 | PCM.DEL ---
L & D Note - General Info Date of Service: 05/05/20 Mother's Due Date: 05/14/20 - Delivery Note Labor: Spontaneous Delivery Outcome: Livebirth (L liveborn 1347 hrs. on 05/05/2020 Apgars 8/9 born ALEXA vacuum assist x1 and green for less than 15 seconds. Weight 3010 g / 6 pounds 10.2 ounces, cord x1 reduced over the shoulder dark brown meconium staining.) Delivery Mode: Vacuum Extraction Presentation: Right Occiput Anterior (ALEXA) Nuchal Cord: Present (X1 tight dark brown meconium staining) Prep: Povidone-Iodine (Betadine Anesthesia Type: Epidural Amniotic Fluid Description: Meconium Stained Episiotomy Type: None Laceration: 1st Degree (9 and right-sided repaired with 3-0 Monocryl x1) Suture type: Other (Monocryl) Suture size: 3-0 Placenta: Intact, Spontaneous Cord: 3 Vessels Estimated Blood Loss: 250 Resuscitation Needed: No [place]: Suctioned, Bulb Syringe, Cathether, Stimulated, Warmed, [place] Used, Warmer Used Provider: Miles Gamez Score 1 min: 8 Score 5 min: 9 Vacuum Extractor Progress Note - Alternative Labor Strategies Considered Alternative Labor Strategies Considered:: Reports: Yes Strategies Considered:: Reports: Contraction Intensity Adequate, Position Changes Used to Facilitate Rotation & Descent, Empty Bladder, Rest Indications Considered:: Reports: Yes Indications:: Reports: Suspicion of Immediate or Potential Compromise Time Out:: Reports: Yes - Patient Prepared Patient Prepared:: Reports: Yes Informed Consent:: Reports: Verbal Risks: Reports: Yes Risks Include:: Reports: Laceration, Shoulder Dystocia, Maternal Injury, Other Anesthesia/Analgesia Adequate:: Reports: Yes - Probability of Success High Probability of Success:: Reports: Yes Weight Estimated:: Reports: AGA Patient Diabetic:: Reports: No Pelvis Adequate:: Reports: Yes Asynclitic:: Reports: No - Application Time Maximum Application Time & Number of Pop-Offs Predetermined:: Reports: Yes Type of Vacuum Used:: Reports: Cup: Mushroom type Vacuum Extraction: Successful - Exit Strategy Exit strategy available:: Reports: Yes and resuscitation teams readily available:: Reports: Yes - General Info Date of Service: 05/05/20 Functional Status: Reports: Pain Controlled - Review of Systems General: Reports: No Symptoms HEENT: Reports: No Symptoms Pulmonary: Reports: No Symptoms Cardiovascular: Reports: No Symptoms Gastrointestinal: Reports: No Symptoms Genitourinary: Reports: No Symptoms Musculoskeletal: Reports: No Symptoms Skin: Reports: No Symptoms Neurological: Reports: No Symptoms Psychiatric: Reports: No Symptoms - Patient Data Vitals - Most Recent: Last Vital Signs Temp 97.5 F 05/05/20 06:00 Pulse 92 05/05/20 06:00 Resp 15 05/05/20 06:00 BP 125/83 05/05/20 06:00 Pulse Ox 99 05/05/20 06:00 Weight - Most Recent: 233 lb Lab Results Last 24 Hours: Laboratory Results - last 24 hr 05/05/20 05/05/20 05/05/20 Range/Units 06:27 07: 07:20 WBC 12.70 H (3.98-10.04) K/mm3 RBC 4.64 (3.98-5.22) M/mm3 Hgb 12.7 (11.2-15.7) gm/dl Hct 38.4 (34.1-44.9) % MCV 82.8 (79.4-94.8) fl MCH 27.4 (25.6-32.2) pg MCHC 33.1 (32.2-35.5) g/dl RDW Std Deviation 48.0 H (36.4-46.3) fL Plt Count 231 (182-369) K/mm3 MPV 10.8 (9.4-12.3) fl Neut % (Auto) 75.0 H (34.0-71.1) % Lymph % (Auto) 17.2 L (19.3-51.7) % [place] % (Auto) 6.4 (4.7-12.5) % Eos % (Auto) 1.2 (0.7-5.8) Baso % (Auto) 0.2 (0.1-1.2) % Neut # (Auto) 9.53 H (1.56-6.13) K/mm3 Lymph # (Auto) 2.19 (1.18-3.74) K/mm3 [place] # (Auto) 0.81 H (0.24-0.36) K/mm3 Eos # (Auto) 0.15 (0.04-0.36) K/mm3 Baso # (Auto) 0.02 (0.01-0.08) K/mm3 Membrane Rupture Positive H COVID-19 (ANGELO) (NEGATIVE) Blood Type O POSITIVE Gel Antibody Screen Negative 05/05/20 Range/Units 09:35 WBC (3.98-10.04) K/mm3 RBC (3.98-5.22) M/mm3 Hgb (11.2-15.7) gm/dl Hct (34.1-44.9) % MCV (79.4-94.8) fl MCH (25.6-32.2) pg MCHC (32.2-35.5) g/dl RDW Std Deviation (36.4-46.3) fL Plt Count (182-369) K/mm3 MPV (9.4-12.3) fl Neut % (Auto) (34.0-71.1) % Lymph % (Auto) (19.3-51.7) % [place] % (Auto) (4.7-12.5) % Eos % (Auto) (0.7-5.8) Baso % (Auto) (0.1-1.2) % Neut # (Auto) (1.56-6.13) K/mm3 Lymph # (Auto) (1.18-3.74) K/mm3 [place] # (Auto) (0.24-0.36) K/mm3 Eos # (Auto) (0.04-0.36) K/mm3 Baso # (Auto) (0.01-0.08) K/mm3 Membrane Rupture COVID-19 (ANGELO) Negative (NEGATIVE) Blood Type Gel Antibody Screen Med Orders - Current: Current Medications Diphenhydramine HCl (Benadryl) 25 mg IVPUSH Q6H PRN PRN Reason: pruritis Ephedrine Sulfate (Ephedrine Sulfate) 5 mg IVPUSH ASDIRECTED PRN PRN Reason: Hypotension Fentanyl (Sublimaze) 100 mcg EPIDUR Q3H PRN PRN Reason: Pain Last Admin: 05/05/20 08:20 Dose: 100 mcg Documented by: Fentanyl/Bupivacaine HCl (Fentanyl/Bupivacaine/Ns 2 Mcg-0.125% 100 Ml) 100 ml EPIDUR ASDIRECTED PRN PRN Reason: Pain Last Admin: 05/05/20 08:20 Dose: 100 ml Documented by: Lactated Ringer's (Ringers, Lactated) 1,000 mls @ 100 mls/hr IV ASDIRECTED OSVALDO Last Admin: 05/05/20 11:25 Dose: 100 mls/hr Documented by: Oxytocin/Lactated Ringer's (Pitocin In Lr 10 Units/1,000 Ml) 10 unit in 1,000 mls @ 500 mls/hr IV .CONTINUOUS OSVALDO Nalbuphine HCl (Nubain) 10 mg IVPUSH Q2H PRN PRN Reason: Pain Sodium Chloride (Saline Flush) 10 ml FLUSH ASDIRECTED PRN PRN Reason: Keep Vein Open Discontinued Medications Bupivacaine HCl (Marcaine 0.5%) Confirm Administered Dose 30 ml .ROUTE .STK-MED ONE Stop: 05/05/20 13:42 Cefazolin Sodium (Ancef) Confirm Administered Dose 1 gm .ROUTE .STK-MED ONE Stop: 05/05/20 13:44 Citric Acid/Sodium Citrate (Bicitra Solution) Confirm Administered Dose 30 ml .ROUTE .STK-MED ONE Stop: 05/05/20 13:35 Citric Acid/Sodium Citrate (Bicitra Solution) 30 ml PO ONETIME ONE Stop: 05/05/20 13:36 Lactated Ringer's (Ringers, Lactated) Confirm Administered Dose 1,000 mls @ as directed .ROUTE .STK-MED ONE Stop: 05/05/20 13:44 Ketorolac Tromethamine (Toradol) Confirm Administered Dose 30 mg .ROUTE .STK-MED ONE Stop: 05/05/20 13:44 Lidocaine/Epinephrine (Xylocaine-Mpf 2%-Epi 1:200,000) Confirm Administered Dose 20 ml .ROUTE .STK-MED ONE Stop: 05/05/20 13:46 Metoclopramide HCl (Reglan) Confirm Administered Dose 10 mg .ROUTE .STK-MED ONE Stop: 05/05/20 13:35 Metoclopramide HCl (Reglan) 10 mg IVPUSH ONETIME ONE Stop: 05/05/20 13:36 Morphine Sulfate (Duramorph Pf) Confirm Administered Dose 1 mg .ROUTE .STK-MED ONE Stop: 05/05/20 13:44 Ondansetron HCl (Zofran) Confirm Administered Dose 4 mg .ROUTE .STK-MED ONE Stop: 05/05/20 13:44 Oxytocin (Pitocin) Confirm Administered Dose 10 unit .ROUTE .STK-MED ONE Stop: 05/05/20 13:44 Sodium Bicarbonate (Sodium Bicarbonate 8.4%) Confirm Administered Dose 50 meq .ROUTE .STK-MED ONE Stop: 05/05/20 13:46 - Exam General: Alert, Oriented Neck: Supple Lungs: Clear to Auscultation, Normal Respiratory Effort Cardiovascular: Regular Rate, Regular Rhythm Extremities: Normal Inspection, Non-Tender, No Pedal Edema, Normal Capillary Refill Skin: Warm, Dry, Intact Psy/Mental Status: Alert, Normal Affect, Normal Mood - Problem List & Annotations (1) 38 weeks gestation of SNOMED Code(s): 86095270 Code(s): Z3A.38 - 38 WEEKS GESTATION OF Status: Acute Current Visit: Yes (2) Spontaneous rupture of amniotic membranes SNOMED Code(s): 070254992 Code(s): UOP4496 - Status: Acute Current Visit: Yes (3) Meconium in amniotic fluid affecting management of mother in third trimester SNOMED Code(s): 09692210, 38907416 Code(s): O36.8930 - MATERNAL CARE FOR OTH PROBLEMS, THIRD TRIMESTER, UNSP Status: Acute Current Visit: Yes Qualifiers: Fetus number: single or unspecified fetus Qualified Code(s): O36.8930 - Maternal care for other specified problems, third trimester, not applicable or unspecified (4) Nuchal cord with compression, delivered, current hospitalization SNOMED Code(s): 350689049, 346867764 Code(s): O69.1XX0 - LABOR AND DELIVERY COMP BY CORD AROUND NECK, W COMPRSN, UNSP Status: Acute Current Visit: Yes - Problem List Review Problem List Initiated/Reviewed/Updated: No - My Orders Last 24 Hours: My Active Orders 05/05/20 Breakfast Regular Diet [DIET] 05/05/20 07:04 Patient Status [ADT] Routine Activity as Tolerated [RC] PFP Communication Order [RC] ASDIRECTED Heart Tones [RC] ASDIRECTED Notify Provider [RC] PFP Notify Provider [RC] PRN Peripheral IV Care [RC] . DIRECTED Vital Signs [RC] PER UNIT ROUTINE Nalbuphine [Nubain] 10 mg IVPUSH Q2H PRN Sodium Chloride 0.9% [Saline Flush] 10 ml FLUSH ASDIRECTED PRN Electronic Heart Tones Ext w TOCO [WOMSER] Routine Electronic Heart Tones Internal [WOMSER] Per Unit Routine Peripheral IV Insertion Adult [OM.PC] Routine 05/05/20 07:15 Lactated Ringers [Ringers, Lactated] 1,000 ml IV ASDIRECTED Oxytocin/Lactated Ringers [Pitocin in LR 10 Units/1,000 ML] 10 unit in 1,000 ml IV .CONTINUOUS 05/05/20 07:20 RAPID PLASMA REAGIN,RPR [CHEM] Routine - Plan Plan:: Patient seen by me and examined and patient discussed with student.
[2020-05-05] MEDS ORDERED: Oxytocin 10 Units/1 ML SDV IM ONE (14:13)
[2020-05-05] MEDS ORDERED: Witch Hazel Medicated Pads 40/Jar TOP PRN (14:39)
[2020-05-05] MEDS ORDERED: Benzocaine/Menthol 20%-0.5% Spray 56 GM Canister TOP PRN (14:39)
[2020-05-05] MEDS ORDERED: Docusate Sodium 100 MG Cap PO PRN (14:39)
[2020-05-05] MEDS ORDERED: Acetaminophen 325 MG Tab PO PRN (14:39)
[2020-05-06] MEDS: Ibuprofen 600 MG Tab PO PRN ×2 (03:38→18:27)
--- NOTE | 2020-05-06 07:31 | PCM.SN.2 ---
- Free Text/Narrative Note: Afebrile. Chest clear, no abnormal breath sounds, cor normal rhythm. Abdomen soft uterus at umbilicus. No heavy vaginal bleeding. No leg pain or cramping, or dedma. Probably home tomorroe.
--- NOTE | 2020-05-06 07:56 | PCM48HPAN ---
Post Anesthesia Note - EVALUATION WITHIN 48HRS OF ANESTHETIC Vital Signs in Normal Range: Yes Patient Participated in Evaluation: Yes Respiratory Function Stable: Yes Airway Patent: Yes Cardiovascular Function Stable: Yes Hydration Status Stable: Yes Pain Control Satisfactory: Yes Nausea and Vomiting Control Satisfactory: Yes Mental Status Recovered: Yes Vital Signs: Last Vital Signs Temp 36.6 C 05/06/20 03:34 Pulse 85 05/06/20 03:34 Resp 15 05/06/20 03:34 BP 125/77 05/06/20 03:34 Pulse Ox 99 05/06/20 03:34
[2020-05-07 06:19] VITALS: BP 126/79; PULSE 83
--- NOTE | 2020-05-07 09:14 | PCM.DCSUM1 ---
Discharge Summary - Hospital Course Free Text/Narrative:: [place] [facility] L/D Delivery Note Patient Name: STEPHANIE COSBY Date of : 89 Patient Status: Inpatient Attending Provider: Miles Gamez Date: 05/05/20 14:02 Initialization Date: 05/05/20 14:02 L & D Note - General Info Date of Service: 05/05/20 Mother's Due Date: 05/14/20 - Delivery Note Labor: Spontaneous Delivery Outcome: Livebirth (L liveborn 1347 hrs. on 05/05/2020 Apgars 8/9 born ALEXA vacuum assist x1 and green for less than 15 seconds. Weight 3010 g / 6 pounds 10.2 ounces, cord x1 reduced over the shoulder dark brown meconium staining.) Infant Delivery Mode: Vacuum Extraction Presentation: Right Occiput Anterior (ALEXA) Nuchal Cord: Present (X1 tight dark brown meconium staining) Prep: Povidone-Iodine (Betadine Anesthesia Type: Epidural Amniotic Fluid Description: Meconium Stained Episiotomy Type: None Laceration: 1st Degree (9 and right-sided repaired with 3-0 Monocryl x1) Suture type: Other (Monocryl) Suture size: 3-0 Placenta: Intact, Spontaneous Cord: 3 Vessels Estimated Blood Loss: 250 Resuscitation Needed: No [place]: Suctioned, Bulb Syringe, Cathether, Stimulated, Warmed, Hennessey Used, Warmer Used Provider: Miles Gamez Score 1 min: 8 Score 5 min: 9 Vacuum Extractor Progress Note - Alternative Labor Strategies Considered Alternative Labor Strategies Considered:: Reports: Yes Strategies Considered:: Reports: Contraction Intensity Adequate, Position Change s Used to Facilitate Rotation & Descent, Empty Bladder, Rest Indications Considered:: Reports: Yes Indications:: Reports: Suspicion of Immediate or Potential Compromise Time Out:: Reports: Yes - Patient Prepared Patient Prepared:: Reports: Yes Informed Consent:: Reports: Verbal Risks: Reports: Yes Risks Include:: Reports: Laceration, Shoulder Dystocia, Maternal Injury, Other Anesthesia/Analgesia Adequate:: Reports: Yes - Probability of Success High Probability of Success:: Reports: Yes Weight Estimated:: Reports: AGA Patient Diabetic:: Reports: No Pelvis Adequate:: Reports: Yes Asynclitic:: Reports: No - Application Time Maximum Application Time & Number of Pop-Offs Predetermined:: Reports: Yes Type of Vacuum Used:: Reports: Cup: Mushroom type Vacuum Extraction: Successful - Exit Strategy Exit strategy available:: Reports: Yes and resuscitation teams readily available:: Reports: Yes - General Info Date of Service: 05/05/20 Functional Status: Reports: Pain Controlled - Review of Systems General: Reports: No Symptoms HEENT: Reports: No Symptoms Pulmonary: Reports: No Symptoms Cardiovascular: Reports: No Symptoms Gastrointestinal: Reports: No Symptoms Genitourinary: Reports: No Symptoms Musculoskeletal: Reports: No Symptoms Skin: Reports: No Symptoms Neurological: Reports: No Symptoms Psychiatric: Reports: No Symptoms - Patient Data Vitals - Most Recent: Last Vital Signs Temp 97.5 F 05/05/20 06:00 Pulse 92 05/05/20 06:00 Resp 15 05/05/20 06:00 BP 125/83 05/05/20 06:00 Pulse Ox 99 05/05/20 06:00 Weight - Most Recent: 233 lb Lab Results Last 24 Hours: Laboratory Results - last 24 hr 05/05/20 05/05/20 05/05/20 Range/Units 06:27 07:20 07:20 WBC 12.70 H (3.98-10.04) K/mm3 RBC 4.64 (3.98-5.22) M/mm3 Hgb 12.7 (11.2-15.7) gm/dl Hct 38.4 (34.1-44.9) % MCV 82.8 (79.4-94.8) fl MCH 27.4 (25.6-32.2) pg MCHC 33.1 (32.2-35.5) g/dl RDW Std Deviation 48.0 H (36.4-46.3) fL Plt Count 231 (182-369) K/mm3 MPV 10.8 (9.4-12.3) fl Neut % (Auto) 75.0 H (34.0-71.1) % Lymph % (Auto) 17.2 L (19.3-51.7) % Monroe % (Auto) 6.4 (4.7-12.5) % Eos % (Auto) 1.2 (0.7-5.8) Baso % (Auto) 0.2 (0.1-1.2) % Neut # (Auto) 9.53 H (1.56-6.13) K/mm3 Lymph # (Auto) 2.19 (1.18-3.74) K/mm3 Monroe # (Auto) 0.81 H (0.24-0.36) K/mm3 Eos # (Auto) 0.15 (0.04-0.36) K/mm3 Baso # (Auto) 0.02 (0.01-0.08) K/mm3 Membrane Rupture Positive H COVID-19 (ANGELO) (NEGATIVE) Blood Type O POSITIVE Gel Antibody Screen Negative 05/05/20 Range/Units 09:35 WBC (3.98-10.04) K/mm3 RBC (3.98-5.22) M/mm3 Hgb (11.2-15.7) gm/dl Hct (34.1-44.9) % MCV (79.4-94.8) fl MCH (25.6-32.2) pg MCHC (32.2-35.5) g/dl RDW Std Deviation (36.4-46.3) fL Plt Count (182-369) K/mm3 MPV (9.4-12.3) fl Neut % (Auto) (34.0-71.1) % Lymph % (Auto) (19.3-51.7) % Monroe % (Auto) (4.7-12.5) % Eos % (Auto) (0.7-5.8) Baso % (Auto) (0.1-1.2) % Neut # (Auto) (1.56-6.13) K/mm3 Lymph # (Auto) (1.18-3.74) K/mm3 [place] # (Auto) (0.24-0.36) K/mm3 Eos # (Auto) (0.04-0.36) K/mm3 Baso # (Auto) (0.01-0.08) K/mm3 Membrane Rupture COVID-19 (ANGELO) Negative (NEGATIVE) Blood Type Gel Antibody Screen Med Orders - Current: Current Medications Diphenhydramine HCl (Benadryl) 25 mg IVPUSH Q6H PRN PRN Reason: pruritis Ephedrine Sulfate (Ephedrine Sulfate) 5 mg IVPUSH ASDIRECTED PRN PRN Reason: Hypotension Fentanyl (Sublimaze) 100 mcg EPIDUR Q3H PRN PRN Reason: Pain Last Admin: 05/05/20 08:20 Dose: 100 mcg Documented by: Fentanyl/Bupivacaine HCl (Fentanyl/Bupivacaine/Ns 2 Mcg-0.125% 100 Ml) 100 ml EPIDUR ASDIRECTED PRN PRN Reason: Pain Last Admin: 05/05/20 08:20 Dose: 100 ml Documented by: Lactated Ringer's (Ringers, Lactated) 1,000 mls @ 100 mls/hr IV ASDIRECTED OSVALDO Last Admin: 05/05/20 11:25 Dose: 100 mls/hr Documented by: Oxytocin/Lactated Ringer's (Pitocin In Lr 10 Units/1,000 Ml) 10 unit in 1,000 mls @ 500 mls/hr IV .CONTINUOUS OSVALDO Nalbuphine HCl (Nubain) 10 mg IVPUSH Q2H PRN PRN Reason: Pain Sodium Chloride (Saline Flush) 10 ml FLUSH ASDIRECTED PRN PRN Reason: Keep Vein Open Discontinued Medications Bupivacaine HCl (Marcaine 0.5%) Confirm Administered Dose 30 ml .ROUTE .STK-MED ONE Stop: 05/05/20 13:42 Cefazolin Sodium (Ancef) Confirm Administered Dose 1 gm .ROUTE .STK-MED ONE Stop: 05/05/20 13:44 Citric Acid/Sodium Citrate (Bicitra Solution) Confirm Administered Dose 30 ml .ROUTE .STK-MED ONE Stop: 05/05/20 13:35 Citric Acid/Sodium Citrate (Bicitra Solution) 30 ml PO ONETIME ONE Stop: 05/05/20 13:36 Lactated Ringer's (Ringers, Lactated) Confirm Administered Dose 1,000 mls @ as directed .ROUTE .STK-MED ONE Stop: 05/05/20 13:44 Ketorolac Tromethamine (Toradol) Confirm Administered Dose 30 mg .ROUTE .STK-MED ONE Stop: 05/05/20 13:44 Lidocaine/Epinephrine (Xylocaine-Mpf 2%-Epi 1:200,000) Confirm Administered Dose 20 ml .ROUTE .STK-MED ONE Stop: 05/05/20 13:46 Metoclopramide HCl (Reglan) Confirm Administered Dose 10 mg .ROUTE .STK-MED ONE Stop: 05/05/20 13:35 Metoclopramide HCl (Reglan) 10 mg IVPUSH ONETIME ONE Stop: 05/05/20 13:36 Morphine Sulfate (Duramorph Pf) Confirm Administered Dose 1 mg .ROUTE .STK-MED ONE Stop: 05/05/20 13:44 Ondansetron HCl (Zofran) Confirm Administered Dose 4 mg .ROUTE .STK-MED ONE Stop: 05/05/20 13:44 Oxytocin (Pitocin) Confirm Administered Dose 10 unit .ROUTE .STK-MED ONE Stop: 05/05/20 13:44 Sodium Bicarbonate (Sodium Bicarbonate 8.4%) Confirm Administered Dose 50 meq .ROUTE .STK-MED ONE Stop: 05/05/20 13:46 - Exam General: Alert, Oriented Neck: Supple Lungs: Clear to Auscultation, Normal Respiratory Effort Cardiovascular: Regular Rate, Regular Rhythm Extremities: Normal Inspection, Non-Tender, No Pedal Edema, Normal Capillary Refill Skin: Warm, Dry, Intact Psy/Mental Status: Alert, Normal Affect, Normal Mood - Problem List & Annotations (1) 38 weeks gestation of SNOMED Code(s): 80313313 Code(s): Z3A.38 - 38 WEEKS GESTATION OF Status: Acute Current Visit: Yes (2) Spontaneous rupture of amniotic membranes SNOMED Code(s): 853587717 Code(s): HYE5371 - Status: Acute Current Visit: Yes (3) Meconium in amniotic fluid affecting management of mother in third trimester SNOMED Code(s): 12331164, 93510472 Code(s): O36.8930 - MATERNAL CARE FOR OTH PROBLEMS, THIRD TRIMESTER, UNSP Status: Acute Current Visit: Yes Qualifiers: Fetus number: single or unspecified fetus Qualified Code(s): O36.8930 - Maternal care for other specified problems, third trimester, not applicable or unspecified (4) Nuchal cord with compression, delivered, current hospitalization SNOMED Code(s): 882111886, 349272155 Code(s): O69.1XX0 - LABOR AND DELIVERY COMP BY CORD AROUND NECK, W COMPRSN, UNSP Status: Acute Current Visit: Yes - Problem List Review Problem List Initiated/Reviewed/Updated: No - My Orders Last 24 Hours: My Active Orders 05/05/20 Breakfast Regular Diet [DIET] 05/05/20 07:04 Patient Status [ADT] Routine Activity as Tolerated [RC] PFP Communication Order [RC] ASDIRECTED Heart Tones [RC] ASDIRECTED Notify Provider [RC] PFP Notify Provider [RC] PRN Peripheral IV Care [RC] . DIRECTED Vital Signs [RC] PER UNIT ROUTINE Nalbuphine [Nubain] 10 mg IVPUSH Q2H PRN Sodium Chloride 0.9% [Saline Flush] 10 ml FLUSH ASDIRECTED PRN Electronic Heart Tones Ext w TOCO [WOMSER] Routine Electronic Heart Tones Internal [WOMSER] Per Unit Routine Peripheral IV Insertion Adult [OM.PC] Routine 05/05/20 07:15 Lactated Ringers [Ringers, Lactated] 1,000 ml IV ASDIRECTED Oxytocin/Lactated Ringers [Pitocin in LR 10 Units/1,000 ML] 10 unit in 1,000 ml IV .CONTINUOUS 05/05/20 07:20 RAPID PLASMA REAGIN,RPR [CHEM] Routine - Plan Plan:: Patient seen by me and examined and patient discussed with student. HPI Initial Comments: [place] [facility] L/D Delivery Note Patient Name: STEPHANIE COSBY Date of : 89 Patient Status: Inpatient Attending Provider: Miles Gamez Date: 05/05/20 14:02 Initialization Date: 05/05/20 14:02 L & D Note - General Info Date of Service: 05/05/20 Mother's Due Date: 05/14/20 - Delivery Note Labor: Spontaneous Delivery Outcome: Livebirth (L liveborn 1347 hrs. on 05/05/2020 Apgars 8/9 born ALEXA vacuum assist x1 and green for less than 15 seconds. Weight 3010 g / 6 pounds 10.2 ounces, cord x1 reduced over the shoulder dark brown meconium staining.) Infant Delivery Mode: Vacuum Extraction Presentation: Right Occiput Anterior (ALEXA) Nuchal Cord: Present (X1 tight dark brown meconium staining) Prep: Povidone-Iodine (Betadine Anesthesia Type: Epidural Amniotic Fluid Description: Meconium Stained Episiotomy Type: None Laceration: 1st Degree (9 and right-sided repaired with 3-0 Monocryl x1) Suture type: Other (Monocryl) Suture size: 3-0 Placenta: Intact, Spontaneous Cord: 3 Vessels Estimated Blood Loss: 250 Resuscitation Needed: No : Suctioned, Bulb Syringe, Cathether, Stimulated, Warmed, Hennessey Used, Warmer Used Provider: Miles Gamez Score 1 min: 8 Score 5 min: 9 Vacuum Extractor Progress Note - Alternative Labor Strategies Considered Alternative Labor Strategies Considered:: Reports: Yes Strategies Considered:: Reports: Contraction Intensity Adequate, Position Changes Used to Facilitate Rotation & Descent, Empty Bladder, Rest Indications Considered:: Reports: Yes Indications:: Reports: Suspicion of Immediate or Potential Compromise Time Out:: Reports: Yes - Patient Prepared Patient Prepared:: Reports: Yes Informed Consent:: Reports: Verbal Risks: Reports: Yes Risks Include:: Reports: Laceration, Shoulder Dystocia, Maternal Injury, Other Anesthesia/Analgesia Adequate:: Reports: Yes - Probability of Success High Probability of Success:: Reports: Yes Weight Estimated:: Reports: AGA Patient Diabetic:: Reports: No Pelvis Adequate:: Reports: Yes Asynclitic:: Reports: No - Application Time Maximum Application Time & Number of Pop-Offs Predetermined:: Reports: Yes Type of Vacuum Used:: Reports: Cup: Mushroom type Vacuum Extraction: Successful - Exit Strategy Exit strategy available:: Reports: Yes and resuscitation teams readily available:: Reports: Yes - General Info Date of Service: 05/05/20 Functional Status: Reports: Pain Controlled - Review of Systems General: Reports: No Symptoms HEENT: Reports: No Symptoms Pulmonary: Reports: No Symptoms Cardiovascular: Reports: No Symptoms Gastrointestinal: Reports: No Symptoms Genitourinary: Reports: No Symptoms Musculoskeletal: Reports: No Symptoms Skin: Reports: No Symptoms Neurological: Reports: No Symptoms Psychiatric: Reports: No Symptoms - Patient Data Vitals - Most Recent: Last Vital Signs Temp 97.5 F 05/05/20 06:00 Pulse 92 05/05/20 06:00 Resp 15 05/05/20 06:00 BP 125/83 05/05/20 06:00 Pulse Ox 99 05/05/20 06:00 Weight - Most Recent: 233 lb Lab Results Last 24 Hours: Laboratory Results - last 24 hr 0705/05/20 05/05/20 Range/Units 06:27 07:20 07:20 WBC 12.70 H (3.98-10.04) K/mm3 RBC 4.64 (3.98-5.22) M/mm3 Hgb 12.7 (11.2-15.7) gm/dl Hct 38.4 (34.1-44.9) % MCV 82.8 (79.4-94.8) fl MCH 27.4 (25.6-32.2) pg MCHC 33.1 (32.2-35.5) g/dl RDW Std Deviation 48.0 H (36.4-46.3) fL Plt Count 231 (182-369) K/mm3 MPV 10.8 (9.4-12.3) fl Neut % (Auto) 75.0 H (34.0-71.1) % Lymph % (Auto) 17.2 L (19.3-51.7) % [place] % (Auto) 6.4 (4.7-12.5) % Eos % (Auto) 1.2 (0.7-5.8) Baso % (Auto) 0.2 (0.1-1.2) % Neut # (Auto) 9.53 H (1.56-6.13) K/mm3 Lymph # (Auto) 2.19 (1.18-3.74) K/mm3 [place] # (Auto) 0.81 H (0.24-0.36) K/mm3 Eos # (Auto) 0.15 (0.04-0.36) K/mm3 Baso # (Auto) 0.02 (0.01-0.08) K/mm3 Membrane Rupture Positive H COVID-19 (ANGELO) (NEGATIVE) Blood Type O POSITIVE Gel Antibody Screen Negative 05/05/20 Range/Units 09:35 WBC (3.98-10.04) K/mm3 RBC (3.98-5.22) M/mm3 Hgb (11.2-15.7) gm/dl Hct (34.1-44.9) % MCV (79.4-94.8) fl MCH (25.6-32.2) pg MCHC (32.2-35.5) g/dl RDW Std Deviation (36.4-46.3) fL Plt Count (182-369) K/mm3 MPV (9.4-12.3) fl Neut % (Auto) (34.0-71.1) % Lymph % (Auto) (19.3-51.7) % [place] % (Auto) (4.7-12.5) % Eos % (Auto) (0.7-5.8) Baso % (Auto) (0.1-1.2) % Neut # (Auto) (1.56-6.13) K/mm3 Lymph # (Auto) (1.18-3.74) K/mm3 [place] # (Auto) (0.24-0.36) K/mm3 Eos # (Auto) (0.04-0.36) K/mm3 Baso # (Auto) (0.01-0.08) K/mm3 Membrane Rupture COVID-19 (ANGELO) Negative (NEGATIVE) Blood Type Gel Antibody Screen Med Orders - Current: Current Medications Diphenhydramine HCl (Benadryl) 25 mg IVPUSH Q6H PRN PRN Reason: pruritis Ephedrine Sulfate (Ephedrine Sulfate) 5 mg IVPUSH ASDIRECTED PRN PRN Reason: Hypotension Fentanyl (Sublimaze) 100 mcg EPIDUR Q3H PRN PRN Reason: Pain Last Admin: 05/05/20 08:20 Dose: 100 mcg Documented by: Fentanyl/Bupivacaine HCl (Fentanyl/Bupivacaine/Ns 2 Mcg-0.125% 100 Ml) 100 ml EPIDUR ASDIRECTED PRN PRN Reason: Pain Last Admin: 05/05/20 08:20 Dose: 100 ml Documented by: Lactated Ringer's (Ringers, Lactated) 1,000 mls @ 100 mls/hr IV ASDIRECTED OSVALDO Last Admin: 05/05/20 11:25 Dose: 100 mls/hr Documented by: Oxytocin/Lactated Ringer's (Pitocin In Lr 10 Units/1,000 Ml) 10 unit in 1,000 mls @ 500 mls/hr IV .CONTINUOUS OSVALDO Nalbuphine HCl (Nubain) 10 mg IVPUSH Q2H PRN PRN Reason: Pain Sodium Chloride (Saline Flush) 10 ml FLUSH ASDIRECTED PRN PRN Reason: Keep Vein Open Discontinued Medications Bupivacaine HCl (Marcaine 0.5%) Confirm Administered Dose 30 ml .ROUTE .STK-MED ONE Stop: 05/05/20 13:42 Cefazolin Sodium (Ancef) Confirm Administered Dose 1 gm .ROUTE .STK-MED ONE Stop: 05/05/20 13:44 Citric Acid/Sodium Citrate (Bicitra Solution) Confirm Administered Dose 30 ml .ROUTE .STK-MED ONE Stop: 05/05/20 13:35 Citric Acid/Sodium Citrate (Bicitra Solution) 30 ml PO ONETIME ONE Stop: 05/05/20 13:36 Lactated Ringer's (Ringers, Lactated) Confirm Administered Dose 1,000 mls @ as directed .ROUTE .STK-MED ONE Stop: 05/05/20 13:44 Ketorolac Tromethamine (Toradol) Confirm Administered Dose 30 mg .ROUTE .STK-MED ONE Stop: 05/05/20 13:44 Lidocaine/Epinephrine (Xylocaine-Mpf 2%-Epi 1:200,000) Confirm Administered Dose 20 ml .ROUTE .STK-MED ONE Stop: 05/05/20 13:46 Metoclopramide HCl (Reglan) Confirm Administered Dose 10 mg .ROUTE .STK-MED ONE Stop: 05/05/20 13:35 Metoclopramide HCl (Reglan) 10 mg IVPUSH ONETIME ONE Stop: 05/05/20 13:36 Morphine Sulfate (Duramorph Pf) Confirm Administered Dose 1 mg .ROUTE .STK-MED ONE Stop: 05/05/20 13:44 Ondansetron HCl (Zofran) Confirm Administered Dose 4 mg .ROUTE .STK-MED ONE Stop: 05/05/20 13:44 Oxytocin (Pitocin) Confirm Administered Dose 10 unit .ROUTE .STK-MED ONE Stop: 05/05/20 13:44 Sodium Bicarbonate (Sodium Bicarbonate 8.4%) Confirm Administered Dose 50 meq .ROUTE .STK-MED ONE Stop: 05/05/20 13:46 - Exam General: Alert, Oriented Neck: Supple Lungs: Clear to Auscultation, Normal Respiratory Effort Cardiovascular: Regular Rate, Regular Rhythm Extremities: Normal Inspection, Non-Tender, No Pedal Edema, Normal Capillary Refill Skin: Warm, Dry, Intact Psy/Mental Status: Alert, Normal Affect, Normal Mood - Problem List & Annotations (1) 38 weeks gestation of SNOMED Code(s): 74294456 Code(s): Z3A.38 - 38 WEEKS GESTATION OF Status: Acute Current Visit: Yes (2) Spontaneous rupture of amniotic membranes SNOMED Code(s): 657793290 Code(s): PVK4661 - Status: Acute Current Visit: Yes (3) Meconium in amniotic fluid affecting management of mother in third trimester SNOMED Code(s): 95308589, 16593925 Code(s): O36.8930 - MATERNAL CARE FOR OTH PROBLEMS, THIRD TRIMESTER, UNSP Status: Acute Current Visit: Yes Qualifiers: Fetus number: single or unspecified fetus Qualified Code(s): O36.8930 - Maternal care for other specified problems, third trimester, not applicable or unspecified (4) Nuchal cord with compression, delivered, current hospitalization SNOMED Code(s): 772848586, 088709143 Code(s): O69.1XX0 - LABOR AND DELIVERY COMP BY CORD AROUND NECK, W COMPRSN, UNSP Status: Acute Current Visit: Yes - Problem List Review Problem List Initiated/Reviewed/Updated: No - My Orders Last 24 Hours: My Active Orders 05/05/20 Breakfast Regular Diet [DIET] 05/05/20 07:04 Patient Status [ADT] Routine Activity as Tolerated [RC] PFP Communication Order [RC] ASDIRECTED Heart Tones [RC] ASDIRECTED Notify Provider [RC] PFP Notify Provider [RC] PRN Peripheral IV Care [RC] . DIRECTED Vital Signs [RC] PER UNIT ROUTINE Nalbuphine [Nubain] 10 mg IVPUSH Q2H PRN Sodium Chloride 0.9% [Saline Flush] 10 ml FLUSH ASDIRECTED PRN Electronic Heart Tones Ext w TOCO [WOMSER] Routine Electronic Heart Tones Internal [WOMSER] Per Unit Routine Peripheral IV Insertion Adult [OM.PC] Routine 05/05/20 07:15 Lactated Ringers [Ringers, Lactated] 1,000 ml IV ASDIRECTED Oxytocin/Lactated Ringers [Pitocin in LR 10 Units/1,000 ML] 10 unit in 1,000 ml IV .CONTINUOUS 05/05/20 07:20 RAPID PLASMA REAGIN,RPR [CHEM] Routine - Plan Plan:: Patient seen by me and examined and patient discussed with student. Brief History: [facility] . L/D Delivery Note. Patient Name: STEPHANIE COSBY [facility] Record Number: [id number]. Date of : 89Patient Status: Inpatient. Attending Provider: Miles Gamez Number: [id number]. Date: 05/05/20 14:02Initialization Date: 05/05/20 14:02. L & D Note. - General Info. Date of Service: 05/05/20. Mother's Due Date: 05/14/20. - Delivery Note. Labor: Spontaneous. Delivery Outcome: Livebirth (L liveborn 1347 hrs. on 05/05/2020 Apgars 8/9 born ALEXA vacuum assist x1 and green for less than 15 seconds. Weight 3010 g / 6 pounds 10.2 ounces, cord x1 reduced over the shoulder dark brown meconium staining.). Delivery Mode: Vacuum Extraction. Presentation: Right Occiput Anterior (ALEXA). Nuchal Cord: Present (X1 tight dark brown meconium staining). Prep: Povidone- Iodine (Betadine. Anesthesia Type: Epidural. Amniotic Fluid Description: Meconium Stained. Episiotomy Type: None. Laceration: 1st Degree (9 and right- sided repaired with 3-0 Monocryl x1). Suture type: Other (Monocryl). Suture size: 3-0. Placenta: Intact, Spontaneous. Cord: 3 Vessels. Estimated Blood Loss: 250. Resuscitation Needed: No. : Suctioned, Bulb Syringe, Cathether, Stimulated, Warmed, Hennessey Used, Warmer Used. Provider: Miles Gamez. Score 1 min: 8. Score 5 min: 9. Vacuum Extractor Progress Note. - Alternative Labor Strategies Considered. Alternative Labor Strategies Considered:: Reports: Yes. Strategies Considered:: Reports: Contraction Intensity Adequate, Position Changes Used to Facilitate Rotation & Descent, Empty Bladder, Rest. Indications Considered:: Reports: Yes. Indications:: Reports: Suspicion of Immediate or Potential Compromise. Time Out:: Reports: Yes. - Patient Prepared. Patient Prepared:: Reports: Yes. Informed Consent:: Reports: Verbal. Risks: Reports: Yes. Risks Include:: Reports: Laceration, Shoulder Dystocia, Maternal Injury, Other. Anesthesia/Analgesia Adequate:: Reports: Yes. - Probability of Success. High Probability of Success:: Reports: Yes. Weight Estimated:: Reports: AGA. Patient Diabetic:: Reports: No. Pelvis Adequate:: Reports: Yes. Asynclitic:: Reports: No. - Application Time. Maximum Application Time & Number of Pop-Offs Predetermined:: Reports: Yes. Type of Vacuum Used:: Reports: Cup: Mushroom type. Vacuum Extraction: Successful. - Exit Strategy. Exit strategy available:: Reports: Yes. and resuscitation teams readily available:: Reports: Yes. - General Info. Date of Service: 05/05/20. Functional Status: Reports: Pain Controlled. - Review of Systems. General: Reports: No Symptoms. HEENT: Reports: No Symptoms. Pulmonary: Reports: No Symptoms. Cardiovascular: Reports: No Symptoms. Gastrointestinal: Reports: No Symptoms. Genitourinary: Reports: No Symptoms. Musculoskeletal: Reports: No Symptoms. Skin: Reports: No Symptoms. Neurological: Reports: No Symptoms. Psychiatric: Reports: No Symptoms. - Patient Data. Vitals - Most Recent: Last Vital Signs. Temp 97.5 F 05/05/20 06:00. Pulse 92 05/05/20 06:00. Resp 15 05/05/20 06:00. BP 125/83 05/05/20 06:00. Pulse Ox 99 05/05/20 06:00. Weight - Most Recent: 233 lb. Lab Results Last 24 Hours: Laboratory Results - last 24 hr. 05/05/2007/Range/Units. 06:2707:2007:20. WBC 12.70 H (3.98-10.04) K/mm3. RBC 4.64 (3.98-5.22) M/mm3. Hgb 12.7 (11.2-15.7) gm/dl. Hct 38.4 (34.1-44.9) %. MCV 82.8 (79.4-94.8) fl. MCH 27.4 (25.6-32.2) pg. MCHC 33.1 (32.2-35.5) g/dl. RDW Std Deviation 48.0 H (36.4-46.3) fL. Plt Count 231 (182-369) K/mm3. MPV 10.8 (9.4-12.3) fl. Neut % (Auto) 75.0 H (34.0-71.1) %. Lymph % (Auto) 17.2 L (19.3-51.7) %. Monroe % (Auto) 6.4 (4.7-12.5) %. Eos % (Auto) 1.2 (0.7-5.8). Baso % (Auto) 0.2 (0.1-1.2) %. Neut # (Auto) 9.53 H (1.56-6.13) K/mm3. Lymph # (Auto) 2.19 (1.18-3.74) K/mm3. Monroe # (Auto) 0.81 H (0.24-0.36) K/mm3. Eos # (Auto) 0.15 (0.04-0.36) K/mm3. Baso # (Auto) 0.02 (0.01-0.08) K/mm3. Membrane Rupture Positive H. COVID-19 (ANGELO) (NEGATIVE). Blood Type O POSITIVE. Gel Antibody Screen Negative. 05/05/20Range/Units. 09:35. WBC (3.98-10.04) K/mm3. RBC (3.98-5.22) M/mm3. Hgb (11.2-15.7) gm/dl. Hct (34.1-44.9) %. MCV (79.4-94.8) fl. MCH (25.6- 32.2) pg. MCHC (32.2-35.5) g/dl. RDW Std Deviation (36.4-46.3) fL. Plt Count (182-369) K/mm3. MPV (9.4-12.3) fl. Neut % (Auto) (34.0-71.1) %. Lymph % (Auto) (19.3-51.7) %. Monroe % (Auto) (4.7-12.5) %. Eos % (Auto) (0.7- 5.8). Baso % (Auto) (0.1-1.2) %. Neut # (Auto) (1.56-6.13) K/mm3. Lymph # (Auto) (1.18-3.74) K/mm3. Monroe # (Auto) (0.24-0.36) K/mm3. Eos # (Auto) (0.04-0.36) K/mm3. Baso # (Auto) (0.01-0.08) K/mm3. Membrane Rupture. COVID-19 (ANGELO) Negative (NEGATIVE). Blood Type. Gel Antibody Screen. Med Orders - Current: Current Medications. Diphenhydramine HCl (Benadryl) 25 mg IVPUSH Q6H PRN. PRN Reason: pruritis. Ephedrine Sulfate (Ephedrine Sulfate) 5 mg IVPUSH ASDIRECTED PRN. PRN Reason: Hypotension. Fentanyl (Sublimaze) 100 mcg EPIDUR Q3H PRN. PRN Reason: Pain. Last Admin: 05/05/20 08:20 Dose: 100 mcg. Documented by: Fentanyl/Bupivacaine HCl (Fentanyl/Bupivacaine/Ns 2 Mcg- 0.125% 100 Ml) 100 ml EPIDUR ASDIRECTED PRN. PRN Reason: Pain. Last Admin: 05/05/20 08:20 Dose: 100 ml. Documented by: Lactated Ringer's (Ringers, Lactated) 1,000 mls @ 100 mls/hr IV ASDIRECTED OSVALDO. Last Admin: 05/05/20 11:25 Dose: 100 mls/hr. Documented by: Oxytocin/Lactated Ringer's (Pitocin In Lr 10 Units/1,000 Ml) 10 unit in 1,000 mls @ 500 mls/hr IV .CONTINUOUS OSVALDO. Nalbuphine HCl (Nubain) 10 mg IVPUSH Q2H PRN. PRN Reason: Pain. Sodium Chloride (Saline Flush) 10 ml FLUSH ASDIRECTED PRN. PRN Reason: Keep Vein Open. Discontinued Medications. Bupivacaine HCl (Marcaine 0.5%) Confirm Administered Dose 30 ml .ROUTE .STK-MED ONE. Stop: 05/05/20 13:42. Cefazolin Sodium (Ancef) Confirm Administered Dose 1 gm .ROUTE .STK-MED ONE. Stop: 05/05/20 13:44. Citric Acid/Sodium Citrate (Bicitra Solution) Confirm Administered Dose 30 ml .ROUTE .STK-MED ONE. Stop: 05/05/20 13:35. Citric Acid/Sodium Citrate (Bicitra Solution) 30 ml PO ONETIME ONE. Stop: 05/05/20 13:36. Lactated Ringer's (Ringers, Lactated) Confirm Administered Dose 1,000 mls @ as directed .ROUTE .STK-MED ONE. Stop: 05/05/20 13:44. Ketorolac Tromethamine (Toradol) Confirm Administered Dose 30 mg .ROUTE .STK-MED ONE. Stop: 05/05/20 13:44. Lidocaine/Epinephrine (Xylocaine-Mpf 2%-Epi 1:200,000) Confirm Administered Dose 20 ml .ROUTE .STK-MED ONE. Stop: 05/05/20 13:46. Me toclopramide HCl (Reglan) Confirm Administered Dose 10 mg .ROUTE .STK-MED ONE. Stop: 05/05/20 13:35. Metoclopramide HCl (Reglan) 10 mg IVPUSH ONETIME ONE. Stop: 05/05/20 13:36. Morphine Sulfate (Duramorph Pf) Confirm Administered Dose 1 mg .ROUTE .STK-MED ONE. Stop: 05/05/20 13:44. Ondansetron HCl (Zofran) Confirm Administered Dose 4 mg .ROUTE .STK-MED ONE. Stop: 05/05/20 13:44. Oxytocin (Pitocin) Confirm Administered Dose 10 unit .ROUTE .STK-MED ONE. Stop: 05/05/20 13:44. Sodium Bicarbonate (Sodium Bicarbonate 8.4%) Confirm Administered Dose 50 meq .ROUTE .STK-MED ONE. Stop: 05/05/20 13:46. - Exam. General: Alert, Oriented. Neck: Supple. Lungs: Clear to Auscultation, Normal Respiratory Effort. Cardiovascular: Regular Rate, Regular Rhythm. Extremities: Normal Inspection, Non-Tender, No Pedal Edema, Normal Capillary Refill. Skin: Warm, Dry, Intact. Psy/Mental Status: Alert, Normal Affect, Normal Mood. - Problem List & Annotations. (1) 38 weeks gestation of . SNOMED Code(s): 14936152. Code(s): Z3A.38 - 38 WEEKS GESTATION OF Status: Acute Current Visit: Yes. (2) Spontaneous rupture of amniotic membranes. SNOMED Code(s): 173981206. Code(s): AEH6009 - Status: Acute Current Visit: Yes. (3) Meconium in amniotic fluid affecting management of mother in third trimester. SNOMED Code(s): 16953147, 00627584. Code(s): O36.8930 - MATERNAL CARE FOR OTH PROBLEMS, THIRD TRIMESTER, UNSP Status: Acute Current Visit: Yes. Qualifiers: Fetus number: single or unspecified fetus Qualified Code(s): O36.8930 - Maternal care for other specified problems, third trimester, not applicable or unspecified. (4) Nuchal cord with compression, delivered, current hospitalization. SNOMED Code(s): 296620908, 250741048. Code(s): O69.1XX0 - LABOR AND DELIVERY COMP BY CORD AROUND NECK, W COMPRSN, UNSP Status: Acute Current Visit: Yes. - Problem List Review. Problem List Initiated/Reviewed/Updated: No. - My Orders. Last 24 Hours: My Active Orders. 05/05/20 Breakfast. Regular Diet [DIET]. 05/05/20 07:04. Patient Status [ADT] Routine. Activity as Tolerated [RC] PFP. Communication Order [RC] ASDIRECTED. Heart Tones [RC] ASDIRECTED. Notify Provider [RC] PFP. Notify Provider [RC] PRN. Peripheral IV Care [RC] . DIRECTED. Vital Signs [RC] PER UNIT ROUTINE. Nalbuphine [Nubain] 10 mg IVPUSH Q2H PRN. Sodium Chloride 0.9% [Saline Flush] 10 ml FLUSH ASDIRECTED PRN. Electronic Heart Tones Ext w TOCO [WOMSER] Routine. Electronic Heart Tones Internal [WOMSER] Per Unit Routine. Peripheral IV Insertion Adult [OM.PC] Routine. 05/05/20 07:15. Lactated Ringers [Ringers, Lactated] 1,000 ml IV ASDIRECTED. Oxytocin/Lactated Ringers [Pitocin in LR 10 Units/1,000 ML] 10 unit in 1,000 ml IV .CONTINUOUS. 05/05/20 07:20. RAPID PLASMA REAGIN,RPR [CHEM] Routine. - Plan. Plan:: Patient seen by me and examined and patient discussed with student. Diagnosis: Stroke: No - Discharge Data Discharge Date: 05/07/20 Discharge Disposition: Home, Self-Care 01 Condition: Good - Referral to Home Health Primary Care Physician: Miles Gamez MD - Discharge Diagnosis/Problem(s) (1) 38 weeks gestation of SNOMED Code(s): 20320607 ICD Code: Z3A.38 - 38 WEEKS GESTATION OF Status: Acute Current Visit: Yes (2) Spontaneous rupture of amniotic membranes SNOMED Code(s): 083114003 ICD Code: [id number] - Status: Acute Current Visit: Yes (3) Meconium in amniotic fluid affecting management of mother in third trimester SNOMED Code(s): 59486275, 69832067 ICD Code: O36.8930 - MATERNAL CARE FOR OTH PROBLEMS, THIRD TRIMESTER, UNSP Status: Acute Current Visit: Yes Qualifiers: Fetus number: single or unspecified fetus Qualified Code(s): O36.8930 - Maternal care for other specified problems, third trimester, not applicable or unspecified (4) Nuchal cord with compression, delivered, current hospitalization SNOMED Code(s): 654260298, 244539752 ICD Code: O69.1XX0 - LABOR AND DELIVERY COMP BY CORD AROUND NECK, W COMPRSN, UNSP Status: Acute Current Visit: Yes - Patient Summary/Data Complications: None Consults: None Hospital Course: Uneventful - Patient Instructions Diet: Usual Diet as Tolerated Driving: Do Not Drive (48 hours) Showering/Bathing: May Shower Notify Provider of: Fever, Increased Pain, Swelling and Redness, Drainage, Nausea and/or Vomiting - Discharge Plan *PRESCRIPTION DRUG MONITORING PROGRAM REVIEWED*: Not Applicable *COPY OF PRESCRIPTION DRUG MONITORING REPORT IN PATIENT JULIA: Not Applicable Home Medications: Home Meds Acetaminophen [Tylenol] 650 mg PO Q6H PRN tablet 05/07/20 [Rx] Docusate Sodium [Colace] 100 mg PO BID PRN cap 05/07/20 [Rx] Ibuprofen [Motrin] 600 mg PO Q6H PRN tablet 05/07/20 [Rx] witch Dylon [Tucks] 1 pad TOP ASDIRECTED PRN pad 05/07/20 [Rx] Referrals: Miles Gamez MD [Primary Care Provider] - (Patient to call and make appointment before leaving hospital to see me in 2 weeks) - Discharge Summary/Plan Comment DC Time >30 min.: No - Patient Data Vitals - Most Recent: Last Vital Signs Temp 98.1 F 05/07/20 04:42 Pulse 83 05/07/20 04:42 Resp 16 05/07/20 04:42 BP 126/79 05/07/20 04:42 Pulse Ox 97 05/07/20 04:42 Weight - Most Recent: 233 lb I&O - Last 24 hours: Intake & Output 05/06/20 05/07/20 05/07/20 22:59 06:59 14:59 Intake Total 0 Balance 0 Med Orders - Current: Current Medications Acetaminophen (Tylenol) 650 mg PO Q4H PRN PRN Reason: mild pain or fever Benzocaine/Menthol (Dermoplast Pain Relief [place]) 0 gm TOP ASDIRECTED PRN PRN Reason: Perineal Comfort Measure Last Admin: 05/05/20 16:07 Dose: 1 can Documented by: Docusate Sodium (Colace) 100 mg PO BID PRN PRN Reason: Constipation Ibuprofen (Motrin) 600 mg PO Q4H PRN PRN Reason: Mild pain or fever Last Admin: 05/06/20 18:27 Dose: 600 mg [facility] TOP ASDIRECTED PRN PRN Reason: Perineal Comfort Measure Last Admin: 05/05/20 16:07 Dose: 1 tub Documented by: Discontinued Medications Bupivacaine HCl (Marcaine 0.5%) Confirm Administered Dose 30 ml .ROUTE .STK-MED ONE Stop: 05/05/20 13:42 Bupivacaine HCl (Sensorcaine-Mpf 0.25%) 10 ml .ROUTE .STK-MED ONE Stop: 05/05/20 00:01 Cefazolin Sodium (Ancef) Confirm Administered Dose 0 gm .ROUTE .STK-MED ONE Stop: 05/05/20 13:44 Citric Acid/Sodium Citrate (Bicitra Solution) Confirm Administered Dose 30 ml .ROUTE .STK-MED ONE Stop: 05/05/20 13:35 Last Admin: 05/05/20 14:12 Dose: Not Given Documented by: Citric Acid/Sodium Citrate (Bicitra Solution) 30 ml PO ONETIME ONE Stop: 05/05/20 13:36 Last Admin: 05/05/20 14:12 Dose: 30 ml Documented by: Diphenhydramine HCl (Benadryl) 25 mg IVPUSH Q6H PRN PRN Reason: pruritis Ephedrine Sulfate (Ephedrine Sulfate) 5 mg IVPUSH ASDIRECTED PRN PRN Reason: Hypotension Fentanyl (Sublimaze) 100 mcg EPIDUR Q3H PRN PRN Reason: Pain Last Admin: 05/05/20 08:20 Dose: 100 mcg Documented by: Fentanyl/Bupivacaine HCl (Fentanyl/Bupivacaine/Ns 2 Mcg-0.125% 100 Ml) 100 ml EPIDUR ASDIRECTED PRN PRN Reason: Pain Last Admin: 05/05/20 08:20 Dose: 100 ml Documented by: Lactated Ringer's (Ringers, Lactated) 1,000 mls @ 100 mls/hr IV ASDIRECTED OSVALDO Last Admin: 05/05/20 11:25 Dose: 100 mls/hr Documented by: Oxytocin/Lactated Ringer's (Pitocin In Lr 10 Units/1,000 Ml) 10 unit in 1,000 mls @ 500 mls/hr IV .CONTINUOUS OSVALDO Lactated Ringer's (Ringers, Lactated) Confirm Administered Dose 0 mls @ as directed .ROUTE .STK-MED ONE Stop: 05/05/20 13:44 Ketorolac Tromethamine (Toradol) Confirm Administered Dose 0 mg .ROUTE .STK-MED ONE Stop: 05/05/20 13:44 Lidocaine/Epinephrine (Xylocaine-Mpf 2%-Epi 1:200,000) Confirm Administered Dose 0 ml .ROUTE .STK-MED ONE Stop: 05/05/20 13:46 Metoclopramide HCl (Reglan) Confirm Administered Dose 10 mg .ROUTE .STK-MED ONE Stop: 05/05/20 13:35 Last Admin: 05/05/20 14:13 Dose: Not Given Documented by: Metoclopramide HCl (Reglan) 10 mg IVPUSH ONETIME ONE Stop: 05/05/20 13:36 Last Admin: 05/05/20 14:12 Dose: 10 mg Documented by: Morphine Sulfate (Duramorph Pf) Confirm Administered Dose 0 mg .ROUTE .STK-MED ONE Stop: 05/05/20 13:44 Nalbuphine HCl (Nubain) 10 mg IVPUSH Q2H PRN PRN Reason: Pain Ondansetron HCl (Zofran) Confirm Administered Dose 0 mg .ROUTE .STK-MED ONE Stop: 05/05/20 13:44 Oxytocin (Pitocin) Confirm Administered Dose 0 unit .ROUTE .STK-MED ONE Stop: 05/05/20 13:44 Oxytocin (Pitocin) 20 unit IM ONETIME ONE Stop: 05/05/20 14:14 Last Admin: 05/06/20 09:53 Dose: Not Given Documented by: Sodium Bicarbonate (Sodium Bicarbonate 8.4%) Confirm Administered Dose 0 meq .ROUTE .STK-MED ONE Stop: 05/05/20 13:46 Sodium Chloride (Saline Flush) 10 ml FLUSH ASDIRECTED PRN PRN Reason: Keep Vein Open
== END 2020-05-07 09:45 | disposition home or self-care (01) | DRG 560 ==
LOC: JD.OBCHECK 05:52 → JD.OB 07:04 → OBSVTOIN 13:47 → JD.OB 13:48
PROVIDERS: ADMIT Obstetrics & Gynecology; ATTEND Obstetrics & Gynecology
PROC: 10D07Z6 Extraction of Products of Conception, Vacuum, Via Natural or Artificial Opening (ICD-10-PCS; principal; 2020-05-05)
PROC: 0HQ9XZZ Repair Perineum Skin, External Approach (ICD-10-PCS; 2020-05-05)
PROC: 3E0R3BZ Introduction of Anesthetic Agent into Spinal Canal, Percutaneous Approach (ICD-10-PCS; 2020-05-05)
PROC: 00HU33Z Insertion of Infusion Device into Spinal Canal, Percutaneous Approach (ICD-10-PCS; 2020-05-05)
DX: O69.1XX0 Labor and delivery complicated by cord around neck, with compression, not applicable or unspecified (principal); O77.0 Labor and delivery complicated by meconium in amniotic fluid; O70.0 First degree perineal laceration during delivery; Z3A.38 38 weeks gestation of pregnancy; Z37.0 Single live birth; Z11.59 Encounter for screening for other viral diseases
CPT/HCPCS: 01967; 36415; 51702; 59025; 59409; 84112; 85025; 86592; 86850; 86900; 86901; A9270-GY; J0690; J1885; J2274; J2405; J2590; J2765; J3010; J3490; J7120; U0002

== ENCOUNTER 2021-11-23 06:28 | Inpatient (IN) | payer BC ==
[2021-11-23] MEDS ORDERED: Nalbuphine 10 MG/1 ML Vial IVPUSH PRN (06:40)
[2021-11-23] MEDS ORDERED: Lactated Ringers 1,000 ML IV SCH (06:45)
[2021-11-23] MEDS ORDERED: Oxytocin/Lactated Ringers 10 UNIT/1,000 ML BAG IV SCH (06:45)
[2021-11-23] MEDS ORDERED: Bupivacaine/fentaNYL/NS 100 ML Bag EPIDUR PRN (07:12)
[2021-11-23] MEDS ORDERED: diphenhydrAMINE 50 MG/ML SDV IVPUSH PRN (07:12)
[2021-11-23] MEDS ORDERED: fentaNYL 100 MCG/2 ML SDV EPIDUR PRN (07:12)
[2021-11-23] MEDS ORDERED: ePHEDrine 50 MG/ML SDV IVPUSH PRN (07:12)
[2021-11-23] MEDS ORDERED: Sodium Chloride 0.9% 10 ML Syringe FLUSH SCH (09:00)
[2021-11-23] MEDS ORDERED: Acetaminophen 325 MG Tab PO PRN (09:15)
[2021-11-23] MEDS ORDERED: Docusate Sodium 100 MG Cap PO PRN (09:15)
[2021-11-23] MEDS ORDERED: Benzocaine/Menthol 20%-0.5% Spray 78 GM Cannister TOP PRN (09:15)
[2021-11-23] MEDS ORDERED: Witch Hazel Medicated Pads 40/Jar TOP PRN (09:15)
[2021-11-23] MEDS ORDERED: Bupivacaine 0.25% 10 ML SDV ONE (17:00)
[2021-11-23] MEDS: Ibuprofen 600 MG Tab PO PRN ×2 (17:14→23:18)
[2021-11-24] MEDS: Ibuprofen 600 MG Tab PO PRN ×2 (06:06→16:07)
[2021-11-24 16:17] VITALS: BP 122/71; PULSE 86
== END 2021-11-24 17:12 | disposition home or self-care (01) | DRG 560 ==
LOC: JD.OBCHECK 06:28 → JD.OB 06:36 → JD.OBCHECK 06:40 → JD.OB 07:20 → OBSVTOIN 08:36 → JD.OB 08:37
PROVIDERS: ADMIT Obstetrics & Gynecology; ATTEND Obstetrics & Gynecology
PROC: 10E0XZZ Delivery of Products of Conception, External Approach (ICD-10-PCS; principal; 2021-11-23)
PROC: 3E0R3BZ Introduction of Anesthetic Agent into Spinal Canal, Percutaneous Approach (ICD-10-PCS; 2021-11-23)
PROC: 00HU33Z Insertion of Infusion Device into Spinal Canal, Percutaneous Approach (ICD-10-PCS; 2021-11-23)
DX: O99.214 Obesity complicating childbirth (principal); E66.9 Obesity, unspecified; Z3A.37 37 weeks gestation of pregnancy; Z37.0 Single live birth; Z20.822 Contact with and (suspected) exposure to COVID-19
CPT/HCPCS: 01967; 36415; 59025; 59409; 85025; 86592; 86850; 86900; 86901; A9270-GY; J2300; J2590; J3010; J3490; J7120; U0002

== ENCOUNTER 2022-04-26 18:09 | Emergency (ER) | payer BC ==
[2022-04-26] MEDS ORDERED: Famotidine 20 MG/2 ML SDV IVPUSH ONE (19:08)
[2022-04-26] MEDS ORDERED: Ondansetron 4 MG/2 ML SDV IVPUSH ONE (19:08)
[2022-04-26] MEDS ORDERED: Lactated Ringers 1,000 ML IV ONE (19:08)
[2022-04-26] MEDS ORDERED: Alum Hydrox/Mag Hydrox/Simeth 30 ML, Lidocaine 2% 15 ML PO ONE ×2 (19:08)
[2022-04-26 20:40] VITALS: BP 119/73; PULSE 67
== END 2022-04-26 20:15 | disposition home or self-care (01) ==
LOC: JD.ED 18:09
DX: R10.12 Left upper quadrant pain (principal); R11.0 Nausea; N39.0 Urinary tract infection, site not specified; E66.9 Obesity, unspecified; Z68.33 Body mass index [BMI] 33.0-33.9, adult
CPT/HCPCS: 36415; 80053; 81001; 83605; 83690; 85025; 96361; 96374; 96375; 99284; A9270; J2405; J3490; J7120; 99283